=== PATIENT | male | born 1955 | race Two or more races ===

== ENCOUNTER → 2019-04-21 | Outpatient (CLI) | payer OTHER ==
[2019-04-21 13:34] VITALS: BP 144/87; PULSE 88; RESP 18
--- NOTE | 2019-04-21 14:54 | P.PAINCN ---
History of Present Illness - Reason for Consult Consult date: 04/21/19 Scalp pain and head pain - Chief Complaint Scalp pain and head pain - History of Present Illness This a pleasant 53-year-old gentleman who had a lipoma removed off his right posterior scalp. Since that time he has had significant pain and numbness and burning. He presents today to discuss treatment options. He does not have any symptoms down his neck into his back or in his arms. Review of Systems Burning in the back of his head as well as decreased sensation in the back of his head. Pain with neck flexion and extension Past Medical History Additional Past Medical History / Comment(s): pain to back of head with nerve involvement,had dog bite to hand had rabie injections 2018 History of Any Multi-Drug Resistant Organisms: None Reported Additional Past Surgical History / Comment(s): large cyst removed posterior head Past Anesthesia/Blood Transfusion Reactions: No Reported Reaction Past Psychological History: No Psychological Hx Reported Smoking Status: Never smoker Past Alcohol Use History: None Reported Past Drug Use History: None Reported - Past Family History Mother Family Medical History: No Reported History Sister(s) Additional Family Medical History / Comment(s): 1 sister aortic aneurysm,cerebral aneurysm Brother(s) Additional Family Medical History / Comment(s): cerebral aneurysm Medications and Allergies Home Medications Medication Instructions Recorded Confirmed Type Acetaminophen [Tylenol] 1,000 mg PO Q4-6H PRN 04/16/19 04/16/19 History To Bring Med List Day Of Consu 04/16/19 History Gabapentin [Neurontin] 300 mg PO BID 04/21/19 04/21/19 History Loratadine [Claritin] 10 mg PO DAILY 04/21/19 04/21/19 History Allergies Allergy/AdvReac Type Severity Reaction Status Date / Time No Known Allergies Allergy Verified 04/21/19 13:22 Physical Exam Vitals: Vital Signs Pulse Resp BP Pulse Ox 04/21/19 13:24 88 18 144/87 96 General: The patient is alert and oriented. Patient is not sedated Patient answers all question appropriately. Cardiac: Heart is regular in rate and rhythm Respiratory: Clear to auscultation. No audible wheezes. Abdomen: Soft nontender nondistended. Musculoskeletal: Strength is normal bilaterally. Sensation is normal bilaterally. Straight leg raise is negative bilaterally. There is a well- healed scar in his right posterior occipital area. He reports decreased sensation to light touch in this area. He is tender to palpation over this area. Neurological: Reflexes are preserved and symmetric bilaterally. Assessment and Plan Assessment: Occipital neuralgiaright side status post lipoma removal Plan: Plan of Care 1. Medications: Patient currently taking gabapentin twice a day. It had previously been recommended to him to increase this to 3 times a day. This has not happened. I will write him a prescription for gabapentin 300 mg by mouth 3 times a day. I will also give him a perception for compounding cream to help with the sensitivity and pain over his occipital region to be applied on a daily basis. 2. Interventions: None at this time 3. Referrals: None 4. Testing: None 5. Follow-up: One month for reevaluation PQRS Measure Charge Sheet Measure #130: Documentation of Current Meds in Medical Chart: Patient not eligible for medications to be documented Measure #226: Tobacco Use: Screen & Cessation Intervention: Pt not a tobacco user Measure #111: Pneumonia Vaccination: Pneumococcal vaccine administered or previously received Measure #47: Advance Care Plan: Advance care planning discussed & documented, plan or surrogate given Measure #412: Opioid Treatment Agreement: Documented signed opioid trtmnt agreemnt min once during opioid trtmnt Measure #408: Opioid Therapy Follow-up Evaluation: Patient had NO f/u eval minimum every 3 months during opioid therapy Measure #317: Preventitive Care & Scrn High Bld Press & F/U: Normal blood pressure, f/u not required Measure #128: Body Mass Index (BMI) Screening & Follow-up: BMI documented within normal parameters Measure #131: Pain Assessment & Follow-up: Pain positive & plan documented Measure #431: Unhealthy Alcohol Use Preventative Care & Scrn: Patient not identified as an unhealthy alcohol user PQRS Narrative: Smoking Status Never smoker Blood Pressure 144/87 Pain Intensity [Right 6 Posterior Head] Scale Used Numeric (1 - 10) Hx Alcohol Use (MH) No Home Medications: Ambulatory Orders Acetaminophen [Tylenol] 1,000 mg PO Q4-6H PRN 04/16/19 To Bring Med List Day Of Consu 04/16/19 Gabapentin [Neurontin] 300 mg PO BID 04/21/19 Loratadine [Claritin] 10 mg PO DAILY 04/21/19
== END | disposition home or self-care (01) ==
LOC: PNWHC3 13:03
PROVIDERS: ATTEND Pain Medicine Pain Medicine
DX: M54.81 Occipital neuralgia (principal); Z98.890 Other specified postprocedural states
CPT/HCPCS: 99201

== ENCOUNTER → 2019-05-19 | Outpatient (CLI) | payer OTHER ==
[2019-05-19 14:00] VITALS: BP 159/93; PULSE 85; RESP 14
--- NOTE | 2019-05-19 14:23 | P.PN ---
Subjective Progress Note Date: 05/19/19 This is a 63-year-old gentleman with right occipital pain status post cyst removal from the right cervical area. The patient is migraine headache improved after this surgery however he started to feel burning pain on the right side of his head radiating to the frontal area of his head and down to the mid cervical spine area on the right side. He also has decreased range of motion to the right due to this pain. The patient has been on Neurontin 300 mg 3 times a day with no improvement. He also takes ibuprofen as needed. The patient denies any pain or paresthesia in the upper extremities. By physical exam he has mild allodynia to touch around the scar tissue on the right occiput. Positive tenderness in the right occipital area and also in the cervical paravertebral musculature on the right side. Decreased range of motion of motion of the right cervical rotation. Diagnoses: Right occipital neuralgia Cervical spondylosis without myelopathy Plan: Increase Neurontin to 4 pills a day(1200 mg) Schedule for right occipital nerve block with IV sedation May need cervical medial branch block in the future, if There is no improvement in pain Objective - Vital Signs Vital signs: Vital Signs Temp Pulse 85 05/19/19 13:51 Resp 14 05/19/19 13:51 BP 159/93 05/19/19 13:51 Pulse Ox 97 05/19/19 13:51 Intake & Output 05/18/19 05/19/19 05/19/19 18:59 06:59 18:59 Weight 86.636 kg
== END | disposition home or self-care (01) ==
LOC: PNWHC3 12:58
PROVIDERS: ATTEND Anesthesiology
DX: M54.81 Occipital neuralgia (principal); M47.812 Spondylosis without myelopathy or radiculopathy, cervical region; Z79.899 Other long term (current) drug therapy; Z98.890 Other specified postprocedural states
CPT/HCPCS: 99211

== ENCOUNTER 2019-05-26 06:02 | Day surgery (SDC) | payer OTHER ==
[2019-05-21 10:02] VITALS: BMI 30.8
[~2019-05-26 06:02] MED LIST: LACTATED RINGERS 1,000 ML IV SCH
[2019-05-26 06:26] VITALS: RESP 16; TEMP 97
[2019-05-26] MEDS ORDERED: LIDOCAINE 1% 20 ML VIAL (10MG/ML) FOR IV START SQ ONE (06:33)
--- NOTE | 2019-05-26 07:10 | P.PCN ---
Date of Procedure: 05/26/19 Procedure(s) Performed: Pre-operative diagnosis: Right occipital neuralgia Post Operative Diagnosis same Procedure: 8 occipital nerve block ANESTHESIA: none EBL: Minimal PROCEDURE INDICATION: The patient with neck pain and headache secondary to occipital neuralgia unresponsive to conservative treatments. PROCEDURE DESCRIPTION / TECHNIQUE: The patient was seen and identified in the preoperative area. Risks, benefits, complications, and alternatives were discussed with the patient, the patient agreed to proceed with the procedure and signed the consent. IV was started. Vital signs remained stable throughout the procedure. Patient was taken to the OR and time out was completed. The patient was placed in the seated position on the procedure table. The cervical area and right occiptial area were prepped with alcohol swab. Vital signs were closely monitored during the procedure. The right occiptal ridge was palpated and was then accessed with a 25 G needle. Then after negative aspiration, 3 ml of the block solution containing 2 ml of ropivacaine 0.5% and Kenalog 40 mg was injected. Needle was withdrawn intact. Patient tolerated procedure well. No acute complications.
[2019-05-26] MEDS ORDERED: LACTATED RINGERS 1,000 ML IV ONE ×2 (07:11)
[2019-05-26 07:28] VITALS: BP 146/95; PULSE 54
== END 2019-05-26 07:41 | disposition home or self-care (01) ==
LOC: ORPAIN 06:02
PROVIDERS: ATTEND Anesthesiology
DX: M54.81 Occipital neuralgia (principal); M47.812 Spondylosis without myelopathy or radiculopathy, cervical region; Z79.1 Long term (current) use of non-steroidal anti-inflammatories (NSAID); Z79.899 Other long term (current) drug therapy
CPT/HCPCS: 64405; J3301

== ENCOUNTER 2019-06-23 05:59 | Day surgery (SDC) | payer OTHER ==
[2019-06-18 11:56] VITALS: BMI 32.1
[2019-06-23 06:23] VITALS: RESP 16; TEMP 97
[2019-06-23] MEDS ORDERED: LIDOCAINE 1% 20 ML VIAL (10MG/ML) FOR IV START INTRADERMA ONE (06:29)
[2019-06-23] MEDS ORDERED: IV FLUID CONTINUATION 750 ML IV ONE (07:29)
--- NOTE | 2019-06-23 07:30 | P.PCN ---
Date of Procedure: 06/23/19 Procedure(s) Performed: Preoperative diagnoses= 1- Right Greater occipital neuralgia. 2- cervical spondylosis with cervical facet arthropathy Postoperative diagnoses= same as preoperative diagnosis. Procedure= Right Greater occipital nerve block Anesthesia=none Estimated blood loss=minimal. Procedure indication= the patient had a history of severe chronic neck pain ,and headache, diagnosed with occipital neuralgia exam was positive for severe tenderness over the occipital nerve bilaterally, she will be a good candidate occipital nerve block, patient failed conservative management Procedure description= the patient was seen and identified in the preoperative holding area, risks and benefits and alternative of the procedure and possible complications discussed with the patient, and he agreed with the preceding, patient signed the consent, an IV was started, and vital signs were monitored and were stable throughout the procedure, patient was placed in the sitting position or table and the neck area was prepped and draped with a sterile fashion, vital signs were closely monitored during the procedure, 25-gauge needle advanced 1 inch lateral to the occipital protuberance on the right side, at the location of the right occipital nerve , then after negative aspiration for heme and CSF and there was no paresthesia during the injection, 6 ml of Robivacaine 0.5% and 40 mg of Depo-Medrol injected after negative aspiration, the needle removed, Patient tolerated the procedure well without any complication, The patient returned to supine position after the back was cleaned and a Band- Aid applied, the patient transported to recovery room in stable condition and he was monitored for 30 minutes before he was discharged home and then patient was reexamined before going home and patient was discharged in stable condition and patient will follow up with the pain clinic in a few weeks. If patient continued to have severe neck pain and headache, we should order an MRI of the cervical spine, possibly will need to do medial branch block cervical area,
[2019-06-23 07:44] VITALS: BP 158/79; PULSE 61
== END 2019-06-23 08:01 | disposition home or self-care (01) ==
LOC: ORPAIN 05:59
PROVIDERS: ATTEND Specialist
DX: G89.29 Other chronic pain (principal); M54.81 Occipital neuralgia; M47.9 Spondylosis, unspecified
CPT/HCPCS: 64405; J1030

== ENCOUNTER → 2019-07-21 | Outpatient (CLI) | payer OTHER ==
[2019-07-21 13:25] VITALS: BP 140/73; PULSE 73; RESP 16
--- NOTE | 2019-07-23 12:49 | P.PAINPG ---
Subjective Progress Note Date: 07/21/19 - Chief Complaint Scalp pain and head pain - History of Present Illness This a pleasant 53-year-old gentleman who had a lipoma removed off his right posterior scalp. Since that time he has had significant pain and numbness and burning. He was diagnosed with right occipital neuralgia, and underwent occipital nerve block on the right side 2. He returns today for follow-up. He reports about one day of pain relief following each of the blocks. He did not have any long-lasting relief. He reports that the pain is primarily on the right side of his neck radiating to right occiput and occasionally to the top of his head. He has been on gabapentin, which controls the sharp stabbing pain. Review of systems is negative for chest pain, shortness of breath, new onset weakness, numbness/tingling, abdominal pain, malaise, fever, night sweats, chills, homicidal or suicidal ideation, or bowel or bladder incontinence. Physical Exam Physical exam: Vitals: Reviewed in EMR GENERAL: Well appearing, in no acute distress PSYCH: Mood and affect is appropriate. Awake, alert, and oriented SKIN: Skin color, texture, turgor normal, no rashes or lesions HEENT: Normocephalic, atraumatic. EOM intact CV: No pedal edema RESP: Respirations are unlabored, no audible wheezing GI: Abdomen non-distended MUSCULOSKELETAL: Bilateral upper and lower extremity strength is normal and symmetric. No atrophy or tone abnormalities are noted. Neck: Tenderness to palpation over the cervical paraspinous muscles on the right side. Spurling negative, Axial Loading Test negative, Garcia's sign negative. Range of motion of neck is limited due to pain. No obvious deformity or signs of trauma. Normal cervical lordotic curve Extremities: Peripheral joint ROM is full and pain free without obvious instability or laxity in all four extremities. No edema or skin discolorations noted. NEUR: Bilateral upper extremity coordination and muscle stretch reflexes are physiologic and symmetric. No loss of sensation is noted. Assessment and Plan Assessment: Occipital neuralgiaright side status post lipoma removal Cervicalgia, cervical spondylosis Plan: Plan of Care 1. Medications: Continue gabapentin 2. Interventions: None at this time, once MRI is completed, we'll consider cervical facet of genic workup 3. Referrals: None 4. Testing: I have ordered a cervical spine MRI today to assess for degenerative changes. 5. Follow-up: Following MRI PQRS Measure Charge Sheet Measure #130: Documentation of Current Meds in Medical Chart: Patient's medications documented in chart Measure #47: Advance Care Plan: Advance care planning discussed & documented, pt chose/unable to give Measure #412: Opioid Treatment Agreement: No documentation of signed opioid treatment agreement Measure #128: Body Mass Index (BMI) Screening & Follow-up: BMI documented within normal parameters Measure #131: Pain Assessment & Follow-up: Pain positive & plan documented, Follow-up scheduled Measure #431: Unhealthy Alcohol Use Preventative Care & Scrn: Patient not identified as an unhealthy alcohol user PQRS Narrative: Smoking Status Never smoker Hx Alcohol Use (MH) No Home Medications: Ambulatory Orders Gabapentin [Neurontin] 300 mg PO QID 04/21/19 Loratadine [Claritin] 10 mg PO DAILY 04/21/19 Ibuprofen [Motrin] 800 mg PO Q8H PRN 05/19/19 Controlled Substance Measures - Controlled Substance Measures Is patient prescribed a controlled substance at discharge?: No
== END | disposition home or self-care (01) ==
LOC: PNWHC3 12:15
PROVIDERS: ATTEND Anesthesiology
DX: M54.81 Occipital neuralgia (principal); M47.812 Spondylosis without myelopathy or radiculopathy, cervical region; Z79.1 Long term (current) use of non-steroidal anti-inflammatories (NSAID); Z79.899 Other long term (current) drug therapy; Z98.890 Other specified postprocedural states
CPT/HCPCS: 99211

== ENCOUNTER 2019-08-03 09:03 | Emergency (ER) | payer OTHER ==
[2019-08-03] MEDS ORDERED: KETOROLAC 30 MG/ML 1 ML VIAL IM STA (10:22)
--- NOTE | 2019-08-03 10:27 | ED ---
General Adult HPI - General Chief complaint: Neck Pain/Injury Stated complaint: head pain Time Seen by Provider: 08/03/19 09:45 Source: patient, RN notes reviewed Mode of arrival: ambulatory Limitations: no limitations - History of Present Illness Initial comments: 63-year-old male presents to the emergency department for chief complaint of chronic pain. Patient states is chronic back pain that radiates up into the right side of his head because of nerve involvement. States that he is seeing pain management for this. States he has had this area cauterized and receives shots in his neck for this. Patient is here today because he has an MRI scheduled Friday and was hoping that we could expedite this process. Sates this pain has been constant for months. Denies any new symptoms. Denies any weakness in the arms or legs. Denies any loss of sensation in the arms or legs.Patient has no other complaints at this time including shortness of breath, chest pain, abdominal pain, nausea or vomiting, headache, or visual changes. - Related Data Home Medications Medication Instructions Recorded Confirmed Gabapentin [Neurontin] 300 mg PO QID 04/21/19 08/03/19 Acetaminophen Tab [Tylenol] 500 mg PO Q6H PRN 08/03/19 08/03/19 Fluticasone Nasal Martin [Flonase 2 spray EA NOSTRIL DAILY PRN 08/03/19 08/03/19 Nasal Martin] Allergies Allergy/AdvReac Type Severity Reaction Status Date / Time Iodinated Contrast Media Allergy Nausea & Verified 08/03/19 09:29 [Iodinated Contrast- Oral Vomiting and IV Dye] Review of Systems ROS Statement: Those systems with pertinent positive or pertinent negative responses have been documented in the HPI. ROS Other: All systems not noted in ROS Statement are negative. Past Medical History Additional Past Medical History / Comment(s): pain to back of head with nerve involvement,had dog bite to hand had rabieS injections 2018 History of Any Multi-Drug Resistant Organisms: None Reported Additional Past Surgical History / Comment(s): large cyst removed posterior head, PAIN CLINIC PROCEDURES Past Anesthesia/Blood Transfusion Reactions: No Reported Reaction Past Psychological History: No Psychological Hx Reported Smoking Status: Never smoker Past Alcohol Use History: None Reported Past Drug Use History: None Reported - Past Family History Mother Family Medical History: No Reported History Sister(s) Additional Family Medical History / Comment(s): 1 sister aortic aneurysm,cerebral aneurysm Brother(s) Additional Family Medical History / Comment(s): cerebral aneurysm General Exam Limitations: no limitations General appearance: alert, in no apparent distress Head exam: Present: atraumatic, normocephalic, normal inspection Eye exam: Present: normal appearance, PERRL, EOMI. Absent: scleral icterus, co njunctival injection, periorbital swelling ENT exam: Present: normal exam, mucous membranes moist Neck exam: Present: normal inspection. Absent: tenderness, meningismus, full ROM (Pain with full flexion however no rigidity of the neck. Pain with full extension as well.), lymphadenopathy Respiratory exam: Present: normal lung sounds bilaterally. Absent: respiratory distress, wheezes, rales, rhonchi, stridor Cardiovascular Exam: Present: regular rate, normal rhythm, normal heart sounds. Absent: systolic murmur, diastolic murmur, rubs, gallop, clicks GI/Abdominal exam: Present: soft, normal bowel sounds. Absent: distended, tenderness, guarding, rebound, rigid Extremities exam: Present: other (Formulator Compounder strength 5 out of 5 in approximately bilaterally. Sensation intact in upper extremities bilaterally.) Neurological exam: Present: alert Course Vital Signs 08/03/19 09:17 Temperature 97.5 F L Pulse Rate 77 Respiratory 18 Rate Blood Pressure 161/104 O2 Sat by Pulse 98 Oximetry Medical Decision Making - Medical Decision Making HPI physical exam as documented. No neurologic deficits. Pain is been constant for months. Patient presents for us to expedite MRI which she is supposed to receive in 3 days. Discussed the patient that unfortunately I am unable to do this through the ER. I did offer to give him a Toradol shot which he initially did not want. However after discussing this with him he does agree. Patient also stopped taking his gabapentin for the past 3 days he has had a cold. I discussed that he should restart this gabapentin as it will help with his nerve pain. He will call his pain management doctor today. He will return if he has any worsening symptoms. Disposition Clinical Impression: Chronic neck pain Disposition: HOME SELF-CARE Condition: Good Instructions (If sedation given, give patient instructions): Neck Pain (ED) Additional Instructions: Please continue to take her gabapentin. Follow-up with pain management and attend you appointment for an MRI on Friday. Returning if you have any worsening symptoms. Is patient prescribed a controlled substance at d/c from ED?: No Referrals: Bobby Fernando MD [Primary Care Provider] - 1-2 days Time of Disposition: 10:26
[2019-08-03 10:34] VITALS: BP 159/99; PULSE 78; RESP 17; TEMP 98.7
== END 2019-08-03 10:36 | disposition home or self-care (01) ==
LOC: EC 09:03
DX: G89.29 Other chronic pain (principal); M54.2 Cervicalgia; R51 Headache; Z91.041 Radiographic dye allergy status; Z79.899 Other long term (current) drug therapy
CPT/HCPCS: 99283; 96372; J1885

== ENCOUNTER → 2019-08-06 | Outpatient (CLI) | payer OTHER ==
--- NOTE | 2019-08-06 08:05 | MR ---
MRI CERVICAL SPINE: CLINICAL HISTORY: Cervicalgia. TECHNIQUE: Multiplanar, multisequence imaging of the cervical spine is performed without IV contrast. COMPARISON: None. FINDINGS: Examination is suboptimal due to patient breathing causing significant motion artifact. Sag ittal images of the cervical spine show the craniocervical junction to appear within normal limits. The cervical and upper thoracic spinal cord is normal in course, caliber, and signal. There is howev er generalized AP narrowing of the cervical spinal canal Vertebral alignment is anatomic. The verteb ral body heights are normal. There is moderate disc space narrowing C5-C6 level. The bone marrow sign al intensity is within normal limits. Axial images show the C2-C3 level to appear within normal limits. Axial images at C3-C4 level show uncovertebral facet degenerative changes bilaterally causing mild bi lateral neural foraminal narrowing with tiny right paracentral disc protrusion mildly effacing the an terior thecal sac. Axial images at C4-C5 level show more prominent central disc protrusion effaces the anterior thecal s ac with mild left-sided neural foraminal narrowing due to uncovertebral facet arthropathy. Axial images at C5-C6 level from uncovertebral facet degenerative changes with moderate broad-based r ight paracentral disc protrusion. This effaces the anterior thecal sac and there is moderate bilatera l neural foraminal narrowing. Axial images at the C6-C7 levels with broad-based right paracentral/foraminal disc protrusion effacin g ventral thecal sac and causing moderate right-sided neural foraminal narrowing. Left-sided neural f oramen is patent. Axial images at C7-T1 level are within normal limits. IMPRESSION: Suboptimal study with motion artifact degradation, multilevel degenerative changes are pr esent most prominent at the C5-C6 level as detailed above.
== END | disposition home or self-care (01) ==
LOC: RADMRIMAIN 07:11
PROVIDERS: ATTEND Anesthesiology
DX: M48.02 Spinal stenosis, cervical region (principal); M50.21 Other cervical disc displacement, high cervical region; M47.892 Other spondylosis, cervical region; M46.92 Unspecified inflammatory spondylopathy, cervical region
CPT/HCPCS: 72141

== ENCOUNTER → 2019-08-23 | Outpatient (CLI) | payer OTHER ==
[2019-08-23 11:31] VITALS: BP 168/95; PULSE 68; RESP 16
--- NOTE | 2019-08-23 11:46 | P.PAINPG ---
Subjective Progress Note Date: 08/23/19 This is a follow-up visit for this 64 years old male with a chronic history of severe neck pain and headache, his diagnosed with occipital neuralgia, cervical spondylosis with cervical facet arthropathy, previously we have done occipital nerve block, he reported that he had partial benefit and only for 1 day, after the block, he denies any fever or night sweats. Denies any motor or sensory deficit, patient had MRI of the cervical spine done recently and it showed patient had multilevel, cervical foraminotomy stenosis and cervical facet degeneration and cervical degenerative disc disease Objective - Vital Signs Vital signs: Vital Signs Temp Pulse 68 08/23/19 11:28 Resp 16 08/23/19 11:28 BP 168/95 08/23/19 11:28 Pulse Ox 97 08/23/19 11:28 - Exam Physical Examinations : -Constitutiona : Cooperative , not in acute distress . -HEENT : nech : supple , no Lymphadenopathy , normal thyroid size . eyes : no ptosis , no icterus, no photophobia . ENT : normal of hearing , normal oropharynx , no Thrush . - Respiratory : Chest clear to auscultations Bilaterally , no wheezing , no Rhonchi . - Cardiovascula : regular rate and rhythem , S1 , S2 , no S3 , no S4. - Gastrointestina : abdomen soft no tenderness , bowel sounds , no organomegally . - Genitourinary : Defferred . - neurologic : Cranial nerve II to XII intact , no focal neurological deffecit . -psychatric : alert , oriented X 3 , appropriate affect , intact judgment and insight . -Lymphatic : no Lymphadenopathy . - musculoskeltal : Cervical Spine motor stregnth in the deltoid and biceps, normal right side , normal Left side motor stregnth biceps and the wrist extensors normal right side ,normal left side . motor stregnth in the triceps muscle . normal Right side , normal Left side deep tendon reflexes normal at the biceps , normal at Brachioradialis , normal at triceps. cervical facet loading test=Positive Bilaterally Spurling test= negative bilaterally. Neck distraction test= negative bilaterally. Beverley sign= negative bilaterally Lumber spine moter stegnth lower extremities ,thigh and legs 5/5 Right side , 5/5 Left side . Assessment and Plan Plan: Assessment and plan=1-cervical spondylosis with cervical facet arthropathy without myelopathy. 2-occipital neuralgia. 3-cervicogenic headache. He will be good candidate to have diagnostic medial branch block bilaterally C2, C3, C4, C5 x2 and a positive then we will proceed with RFA Procedure risk and benefits and alternatives discussed with the patient he agreed with the procedure. Time with Patient: Less than 30 PQRS Measure Charge Sheet Measure #130: Documentation of Current Meds in Medical Chart: Patient's medications documented in chart Measure #226: Tobacco Use: Screen & Cessation Intervention: Pt not a tobacco user Measure #111: Pneumonia Vaccination: Pneumococcal vaccine NOT administered or previously given Measure #47: Advance Care Plan: Advance care planning discussed & documented, pt chose/unable to give Measure #412: Opioid Treatment Agreement: No documentation of signed opioid treatment agreement Measure #408: Opioid Therapy Follow-up Evaluation: Patient had NO f/u eval minimum every 3 months during opioid therapy Measure #317: Preventitive Care & Scrn High Bld Press & F/U: Pre-hypertensive or hypertensive BP documented, pt will f/u with PCP Measure #128: Body Mass Index (BMI) Screening & Follow-up: BMI documented ABOVE normal parameters - f/u documented Measure #131: Pain Assessment & Follow-up: Pain positive & plan documented, Follow-up scheduled Measure #431: Unhealthy Alcohol Use Preventative Care & Scrn: Patient not identified as an unhealthy alcohol user PQRS Narrative: Smoking Status Never smoker Narcotic Agreement Date Signed 06/25/19 Blood Pressure 168/95 Pain Intensity [Neck] 6 Scale Used Numeric (1 - 10) Hx Alcohol Use (MH) No Home Medications: Ambulatory Orders Gabapentin [Neurontin] 300 mg PO QID 04/21/19 Acetaminophen Tab [Tylenol] 500 mg PO Q6H PRN 08/03/19 Fluticasone Nasal [place] [Flonase Nasal [place]] 2 spray EA NOSTRIL DAILY PRN 08/03/19 Controlled Substance Measures - Controlled Substance Measures Is patient prescribed a controlled substance at discharge?: No
== END ==
LOC: PNWHC3 10:50
PROVIDERS: ATTEND Specialist
DX: M47.812 Spondylosis without myelopathy or radiculopathy, cervical region (principal); M46.92 Unspecified inflammatory spondylopathy, cervical region; M54.81 Occipital neuralgia; R51 Headache; Z79.899 Other long term (current) drug therapy
CPT/HCPCS: 99211

== ENCOUNTER 2019-08-26 07:12 | Day surgery (SDC) | payer OTHER ==
[2019-08-26 08:09] VITALS: TEMP 97.3
[2019-08-26] MEDS ORDERED: IV FLUID CONTINUATION 1,000 ML IV ONE ×2 (08:09→09:50)
[2019-08-26] MEDS ORDERED: LIDOCAINE 1% 20 ML VIAL (10MG/ML) FOR IV START INTRADERMA ONE (08:09)
--- NOTE | 2019-08-26 09:47 | P.PCN ---
Date of Procedure: 08/26/19 Procedure(s) Performed: PREOPERATIVE DIAGNOSIS: Cervical Spondylosis with Facet Arthropathy.without myelopathy POSTOPERATIVE DIAGNOSIS: Cervical Spondylosis Facet Arthropathy. Without myelopathy PROCEDURES: Diagnostic bilateral C2 , C3, C4 , C5 , medial branch blocks, with fluoroscopic guidance (fluoroscopy images available in radiology department ) (The target facet joint C2- 3, C3- 4, C4- 5 ) ANESTHESIA: Local with 1% lidocaine; moderate sedation with Versed. 2 mg , and fentanyl 100 micrograms EBL: Minimal PROCEDURE INDICATION: The patient with neck pain secondary to cervical arthropathy unresponsive to more conservative treatments. PROCEDURE DESCRIPTION / TECHNIQUE: The patient was seen and identified in the preoperative area. Risks, benefits, complications, and alternatives were discussed with the patient, the patient agreed to proceed with the procedure and signed the consent. IV was started. Vital signs remained stable throughout the procedure. Patient was taken to the OR and time out was completed. The patient was placed in the supine position on the procedure table.(when we placed patient in prone position ,I was able to see only C2 vertebral, for this reason patient placed in supine position ). The cervical area was prepped and draped in the usual sterile fashion. Critical pause was taken. Vital signs were closely monitored during the procedure. Conscious sedation was used during the procedure to decrease patients anxiety. Using cross-table lateral fluoroscopy, the centroid of the trapezoid of right C2 ,C3, C4 , C5 was identified, marked, and localized with 1% lidocaine 1 ml at each level for skin and Sub Q infiltrations . Subsequently, a 25 G 4 spinal needle was advanced guided by fluoroscopy to the centroid of the trapezoid of Right C2 ,C3, C4 , C5, . [place] tip position was confirmed at the centroid of the trapezoids of Right C2 ,C3 , C4 , C5 with anteroposterior fluoroscopy. Subsequently, 2 ml of preservative-free Ropivacaine 0.5% mixed with Depo- Medrol 20 mg and half ml of the mixture was injected after negative aspiration for blood and CSF. [place] was then removed intact the same procedure was repeated at the left C2 , C3, C4 , C5 levels. COMPLICATIONS: No acute complications. COMMENTS: DISPOSITION / PLANS: The patient was placed in a supine position and transferred to the recovery area in a stable condition for observation and was discharged from the recovery room after meeting discharge criteria. Home discharge instructions given to the patient by the staff. The patient was reexamined prior to discharge. The patient will schedule a follow up in the clinic in 2-4 weeks.
--- NOTE | 2019-08-26 09:57 | FL ---
EXAMINATION TYPE: FL guided pain mgmt statistic DATE OF EXAM: 08/26/2019 HISTORY: Pain bilateral cervical facet block. Dr. Muhammad. 14 sec fl time. 4 pics scanned
[2019-08-26 10:06] VITALS: BP 149/85; PULSE 60; RESP 16
[2019-08-26] MEDS ORDERED: LACTATED RINGERS 1,000 ML IV SCH (10:45)
== END 2019-08-26 10:46 | disposition home or self-care (01) ==
LOC: ORPAIN 07:12
PROVIDERS: ATTEND Specialist
DX: G89.29 Other chronic pain (principal); M47.812 Spondylosis without myelopathy or radiculopathy, cervical region; M54.81 Occipital neuralgia; Z79.899 Other long term (current) drug therapy
CPT/HCPCS: 64490; 64491; 64492; J2250; J1030; J3010; 99152; 99153

== ENCOUNTER 2019-09-09 07:17 | Day surgery (SDC) | payer OTHER ==
[2019-09-08 08:40] VITALS: BMI 31.0
[2019-09-09 07:59] VITALS: TEMP 98.2
[2019-09-09] MEDS ORDERED: LIDOCAINE 1% 20 ML VIAL (10MG/ML) FOR IV START INTRADERMA ONE (08:05)
[2019-09-09] MEDS ORDERED: IV FLUID CONTINUATION 1,000 ML IV ONE (09:18)
[2019-09-09 09:22] VITALS: RESP 18
[2019-09-09 09:37] VITALS: BP 132/60; PULSE 88
--- NOTE | 2019-09-09 09:42 | P.PCN ---
Date of Procedure: 09/09/19 Procedure(s) Performed: PREOPERATIVE DIAGNOSIS: Cervical Spondylosis with Facet Arthropathy.without myelopathy POSTOPERATIVE DIAGNOSIS: Cervical Spondylosis, Facet Arthropathy. Without myelopathy PROCEDURES: Bilateral Diagnostic C2, C3, C4, C5 medial branch blocks for facets C23, C3-4, C4-5, with fluoroscopic guidance. This is the second diagnostic block ANESTHESIA: Local with 1% lidocaine; IV sedation with Versed, sedation time 23 minutes Fluoroscopy was used for the procedure and images were saved in the radiology portion of the chart. EBL: Minimal PROCEDURE INDICATION: The patient with neck pain secondary to cervical arthropathy unresponsive to more conservative treatments. PROCEDURE DESCRIPTION / TECHNIQUE: The patient was seen and identified in the preoperative area. Risks, benefits, complications, and alternatives were discussed with the patient, the patient agreed to proceed with the procedure and signed the consent. IV was started. Vital signs remained stable throughout the procedure. Patient was taken to the OR and time out was completed. The patient was placed in the supine position on the procedure table. A pillow was placed under the patients chest to increase the cervical interlaminar space. The cervical area was prepped and draped in the usual sterile fashion. A timeout was performed. Vital signs were closely monitored during the procedure. Conscious sedation was used during the procedure to decrease patients anxiety. Using cross-table lateral fluoroscopy, the centroid of the trapezoid of the first level was identified, marked, and localized with 1% lidocaine 0.2 ml at each level for skin and subcutaneous infiltration . Subsequently, a 25 G 3.5" Quinke spinal needle was advanced guided by fluoroscopy to the centroid of the trapezoid . [place] tip position was confirmed using lateral fluoroscopy. 0.5 mL of 4 % lidocaine was injected at each level. COMPLICATIONS: No acute complications. Comments: Contrast dye was not used as the patient is ALLERGIC. DISPOSITION / PLANS: The patient was placed in a supine position and transferred to the recovery area in a stable condition for observation and was discharged from the recovery room after meeting discharge criteria. Home discharge instructions given to the patient by the staff. The patient will follow up in clinic in 2 weeks.
--- NOTE | 2019-09-09 10:23 | FL ---
EXAMINATION TYPE: FL guided pain mgmt statistic DATE OF EXAM: 09/09/2019 FLUOROSCOPY Fluoroscopy time of 9 seconds was used during bilateral cervical facet steroid injections. 7 image/s document/s the procedure.
== END 2019-09-09 09:55 | disposition home or self-care (01) ==
LOC: ORPAIN 07:17
PROVIDERS: ATTEND Anesthesiology
DX: G89.29 Other chronic pain (principal); M47.812 Spondylosis without myelopathy or radiculopathy, cervical region; M54.81 Occipital neuralgia; G44.89 Other headache syndrome; Z79.899 Other long term (current) drug therapy; Z91.041 Radiographic dye allergy status
CPT/HCPCS: 64490; 64491; 64492; J2250; 99152; 99153

== ENCOUNTER → 2019-10-05 | Outpatient (CLI) | payer OTHER ==
[2019-10-05 12:21] VITALS: PULSE 76; RESP 18
[2019-10-05 12:53] VITALS: BP 162/102
--- NOTE | 2019-10-06 14:47 | P.PN ---
Subjective Progress Note Date: 10/05/19 This is a follow-up visit for this 64 years old male with a chronic history of severe neck pain and headache, his diagnosed with occipital neuralgia, cervical spondylosis with cervical facet arthropathy, previously we have done occipital nerve block, he reported that he had partial benefit and only for 1 day, after the block, and recently we have done diagnostic medial branch block cervical area C2, C3, C4, C5, he reported that he had 0 benefit from it, his pain level was 6-7 before the block and he continued to have neck pain around 6-7 after the block, he denies any fever or night sweats. Denies any motor or sensory deficit, patient had MRI of the cervical spine done recently and it showed pat ient had multilevel, cervical foraminotomy stenosis and cervical facet degeneration and cervical degenerative disc disease Physical Examinations : -Constitutiona : Cooperative , not in acute distress . -HEENT : nech : supple , no Lymphadenopathy , normal thyroid size . eyes : no ptosis , no icterus, no photophobia . ENT : normal of hearing , normal oropharynx , no Thrush . - Respiratory : Chest clear to auscultations Bilaterally , no wheezing , no Rhonchi . - Cardiovascula : regular rate and rhythem , S1 , S2 , no S3 , no S4. - Gastrointestina : abdomen soft no tenderness , bowel sounds , no organomegally . - Genitourinary : Defferred . - neurologic : Cranial nerve II to XII intact , no focal neurological deffecit . -psychatric : alert , oriented X 3 , appropriate affect , intact judgment and insight . -Lymphatic : no Lymphadenopathy . - musculoskeltal : Cervical Spine motor stregnth in the deltoid and biceps, normal right side , normal Left side motor stregnth biceps and the wrist extensors normal right side ,normal left side . motor stregnth in the triceps muscle . normal Right side , normal Left side deep tendon reflexes normal at the biceps , normal at Brachioradialis , normal at triceps. cervical facet loading test=Positive Bilaterally Spurling test= negative bilaterally. Neck distraction test= negative bilaterally. Beverley sign= negative bilaterally Lumber spine moter stegnth lower extremities ,thigh and legs 5/5 Right side , 5/5 Left side . Assessment and Plan Plan: Assessment and plan=1-cervical spondylosis with cervical facet arthropathy without myelopathy. 2-occipital neuralgia. 3-cervicogenic headache. Patient had no benefit after occipital nerve block, patient had no benefit after the diagnostic medial branch block cervical area He continued to have severe headache, patient will be referred to a neurologist for evaluation regarding his headaches, Patient saw Dr. Dobson neurologist in [facility] and he will follow up with him MYKEL Patient will continue to use Neurontin 300 mg 3 times a day PQRS Measure Charge Sheet Measure #130: Documentation of Current Meds in Medical Chart: Patient's medications documented in chart Measure #226: Tobacco Use: Screen & Cessation Intervention: Pt not a tobacco user Measure #111: Pneumonia Vaccination: Pneumococcal vaccine NOT administered or previously given Measure #47: Advance Care Plan: Advance care planning discussed & documented, pt chose/unable to give Measure #412: Opioid Treatment Agreement: No documentation of signed opioid treatment agreement Measure #408: Opioid Therapy Follow-up Evaluation: Patient had NO f/u eval minimum every 3 months during opioid therapy Measure #317: Preventitive Care & Scrn High Bld Press & F/U: Pre-hypertensive or hypertensive BP documented, pt will f/u with PCP Measure #128: Body Mass Index (BMI) Screening & Follow-up: BMI documented ABOVE normal parameters - f/u documented Measure #131: Pain Assessment & Follow-up: Pain positive & plan documented, Follow-up scheduled Measure #431: Unhealthy Alcohol Use Preventative Care & Scrn: Patient not identified as an unhealthy alcohol user PQRS Narrative: Objective - Vital Signs Vital signs: Vital Signs Temp Pulse 76 10/05/19 12:09 Resp 18 10/05/19 12:09 BP 162/102 10/05/19 12:52 Pulse Ox 95 10/05/19 12:09
== END ==
LOC: PNWHC3 11:06
PROVIDERS: ATTEND Specialist
DX: M47.812 Spondylosis without myelopathy or radiculopathy, cervical region (principal); M46.92 Unspecified inflammatory spondylopathy, cervical region; M54.81 Occipital neuralgia; R51 Headache
CPT/HCPCS: 99211

== ENCOUNTER 2019-11-13 22:54 | Emergency (ER) | payer OTHER ==
[2019-11-13 23:15] VITALS: TEMP 98
[2019-11-13] MEDS ORDERED: guaiFENesin-DM 600/30MG 1 EACH TAB.ER.12H PO STA (23:26)
[2019-11-13] MEDS ORDERED: HYDROmorphone 1 MG/ML 1 ML SYRINGE IM STA (23:26)
[2019-11-13] MEDS ORDERED: ORPHENADRINE 30 MG/ML 2 ML VIAL IM STA (23:26)
[2019-11-13] MEDS ORDERED: IPRATROPIUM-ALBUTEROL 3 ML NEB INHALATION STA (23:26)
--- NOTE | 2019-11-14 01:05 | ED ---
General Adult HPI - General Chief complaint: Neck Pain/Injury Stated complaint: Migraine Time Seen by Provider: 11/13/19 23:16 Source: patient, family Mode of arrival: ambulatory Limitations: no limitations - History of Present Illness Initial comments: 64-year-old male patient presents to the emergency department today for evaluation of neck pain radiating into his head. Patient states that he has had these symptoms for a little over a year after experiencing a fall. Patient states he is being treated by paint technician Dr. Dobson. States he is unable to get his last injections due to being ill with pneumonia. States his cough has worsened his symptoms. States that he did take a Fioricet which did not help his symptoms. Denies using any other medications. He is currently on antibiotics for pneumonia. Denies using any cough medications. Denies fever or chills. Denies any new symptoms. Denies any numbness or tingling to the upper extremities. Denies blurred vision, double vision, nausea, or vomiting. Patient denies any recent rash, shortness breath, chest pain, abdominal pain, diarrhea, constipation, dizziness, weakness, hematuria, dysuria, urinary urgency, urinary frequency, or any other complaints. - Related Data Home Medications Medication Instructions Recorded Confirmed Gabapentin [Neurontin] 300 mg PO QID 04/21/19 10/05/19 Acetaminophen Tab [Tylenol] 500 mg PO Q6H PRN 08/03/19 10/05/19 Fluticasone Nasal [place] [Flonase 2 spray EA NOSTRIL DAILY PRN 08/03/19 10/05/19 Nasal [place]] Previous Rx's Medication Instructions Recorded Albuterol Sulfate [Proair Hfa] 1 - 2 puff INHALATION Q6HR PRN #1 11/14/19 inhaler Ipratropium-Albuterol Nebulize 3 ml INHALATION Q4H PRN #30 neb 11/14/19 [Duoneb 0.5 mg-3 mg/3 ml Soln] predniSONE 50 mg PO DAILY #3 tab 11/14/19 Allergies Allergy/AdvReac Type Severity Reaction Status Date / Time Iodinated Contrast Media Allergy Nausea & Verified 11/13/19 23:15 [Iodinated Contrast- Oral Vomiting and IV Dye] Review of Systems ROS Statement: Those systems with pertinent positive or pertinent negative responses have been documented in the HPI. ROS Other: All systems not noted in ROS Statement are negative. Past Medical History Past Medical History: GERD/Reflux, Osteoarthritis (OA), Pneumonia Additional Past Medical History / Comment(s): Chronic pain to back of head with nerve involvement, had dog bite to hand, had rabies injections 2018. Hx Pneumonia 2017. migraines History of Any Multi-Drug Resistant Organisms: None Reported Additional Past Surgical History / Comment(s): Large cyst removed from posterior head, PAIN CLINIC PROCEDURES. Past Anesthesia/Blood Transfusion Reactions: No Reported Reaction Past Psychological History: No Psychological Hx Reported Smoking Status: Never smoker Past Alcohol Use History: None Reported Past Drug Use History: None Reported - Past Family History Mother Family Medical History: No Reported History, Deep Vein Thrombosis (DVT) Sister(s) Additional Family Medical History / Comment(s): 1 sister aortic aneurysm, cerebral aneurysm Brother(s) Additional Family Medical History / Comment(s): cerebral aneurysm General Exam Limitations: no limitations General appearance: alert, in no apparent distress, other (This is a well- developed, well-nourished adult male patient in no acute distress. Vital signs upon presentation temperature 98.2F, pulse 96, respirations 20, blood pressure 154/96, pulse ox 94% on room air.) Eye exam: Present: normal appearance, PERRL, EOMI. Absent: scleral icterus, conjunctival injection, periorbital swelling ENT exam: Present: normal exam, normal oropharynx, mucous membranes moist Neck exam: Present: normal inspection, full ROM. Absent: tenderness, meningismus, lymphadenopathy Respiratory exam: Present: wheezes (Faint expiratory wheezes noted in the posterior lung brewer.), other (Persistent dry cough noted). Absent: normal lung sounds bilaterally, respiratory distress, rales, rhonchi, stridor Cardiovascular Exam: Present: regular rate, normal rhythm, normal heart sounds. Absent: systolic murmur, diastolic murmur, rubs, gallop, clicks GI/Abdominal exam: Present: soft, normal bowel sounds. Absent: distended, t enderness, guarding, rebound, rigid Back exam: Present: normal inspection. Absent: vertebral tenderness Neurological exam: Present: alert, oriented X3, CN II-XII intact, other (Strength in all 4 extremities is 5/5.) Psychiatric exam: Present: normal affect, normal mood Skin exam: Present: warm, dry, intact, normal color. Absent: rash Course Vital Signs 11/13/19 11/14/19 11/14/19 23:12 00:06 00:10 Temperature 98.0 F Pulse Rate 96 96 96 Respiratory 20 Rate Blood Pressure 154/96 O2 Sat by Pulse 94 L Oximetry 11/14/19 01:16 Temperature Pulse Rate 95 Respiratory 18 Rate Blood Pressure 133/88 O2 Sat by Pulse 95 Oximetry Medical Decision Making - Medical Decision Making 64-year-old male patient presents to the emergency department today for evaluation of neck pain. Pain is chronic in nature. States that he has had a for the last year. He is also experiencing cough and congestion. He is being treated for pneumonia currently. Reports intermittent wheezing. Physical examination reveals normal neurologic status. Lungs do exhibiting x-ray wheezing. Given a breathing treatment and cough medication here in the emergency department. Upon reevaluation he does report improvement of symptoms. All symptoms seemed to be chronic, he denies new symptoms. He will be discharged with prescription for DuoNeb treatments, albuterol inhaler, and prednisone. He is instructed to follow up with his primary care physician and his paint technician for further evaluation as soon as possible. Return parameters were discussed in detail. He verbalizes understanding and agrees with this plan. Disposition Clinical Impression: Chronic neck pain, Acute bronchitis, Pneumonia Disposition: HOME SELF-CARE Condition: Good Instructions (If sedation given, give patient instructions): Acute Bronchitis (ED), Pneumonia (ED), Chronic Neck Pain (DC) Additional Instructions: Take medications as directed. Follow-up with your neurologist for further evaluation as soon as possible. Return to the emergency department immediately for any new, worsening, or concerning symptoms. Prescriptions: Ipratropium-Albuterol Nebulize [Duoneb 0.5 mg-3 mg/3 ml Soln] 3 ml INHALATION Q4H PRN #30 neb PRN Reason: Wheezing/Shortness of breath predniSONE 50 mg PO DAILY #3 tab Albuterol Sulfate [Proair Hfa] 1 - 2 puff INHALATION Q6HR PRN #1 inhaler PRN Reason: Shortness Of Breath Is patient prescribed a controlled substance at d/c from ED?: No Referrals: Bobby Fernando MD [Primary Care Provider] - 1-2 days Time of Disposition: 01:05
[2019-11-14 01:21] VITALS: BP 133/88; PULSE 95; RESP 18
== END 2019-11-14 01:20 | disposition home or self-care (01) ==
LOC: EC 22:54
DX: M54.2 Cervicalgia (principal); G89.29 Other chronic pain; J20.9 Acute bronchitis, unspecified; J18.9 Pneumonia, unspecified organism; Z91.041 Radiographic dye allergy status; Z79.899 Other long term (current) drug therapy
CPT/HCPCS: 94640; 99283; 96372 ×2; J2360; J1170

== ENCOUNTER 2021-06-29 08:08 | Day surgery (SDC) | payer OTHER ==
[2021-06-28 10:02] VITALS: BMI 32.8
[2021-06-29] MEDS: LACTATED RINGERS 1,000 ML IV SCH ×2 (08:23→08:38)
[2021-06-29] MEDS ORDERED: PROPOFOL 10 MG/ML 20 ML VIAL IV ONE (09:05)
[2021-06-29] MEDS ORDERED: fentaNYL (PF) 50 MCG/ML 2 ML AMP ONE (09:05)
[2021-06-29] MEDS ORDERED: MIDAZOLAM 2 MG/2 ML VIAL ONE (09:05)
--- NOTE | 2021-06-29 09:33 | P.PCN ---
Date of Procedure: 06/29/21 Procedure(s) Performed: BRIEF HISTORY: Patient is a 65-year-old pleasant male scheduled for an elective colonoscopy as a part of evaluation of change in bowel habits for the last 3 months duration. PROCEDURE PERFORMED: Colonoscopy with biopsy. PREOPERATIVE DIAGNOSIS: Change in bowel habits. IV sedation per Anesthesia. PROCEDURE: After informed consent was obtained, the patient, was brought into the endoscopy unit. IV sedation was administered by Anesthesia under continuous monitoring. Digital rectal examination was normal. Initially the Olympus CF-160 flexible video colonoscope was then inserted in the rectum, gradually advanced into the cecum without any difficulty. Careful examination was performed as the scope was gradually being withdrawn. Ileocecal valve and the appendiceal orifice were visualized and appeared normal. Prep was excellent. In the base of the cecum there was a 3 mm polyp that was removed by cold biopsy. Mucosa of the cecum, ascending colon, transverse colon, descending colon, sigmoid colon, and rectum appeared normal. Retroflexion was performed in the rectum and no lesions were seen. The patient tolerated the procedure well. IMPRESSION: 3-4 mm cecal polyp status post biopsy Rest of the colon appeared normal RECOMMENDATIONS: Findings of this examination were discussed with the patient as well as his family. He was advised to follow with the biopsy results. If the biopsy reveals an adenoma, he can have a repeat colonoscopy in 5 years.
[2021-06-29 09:58] VITALS: PULSE 55
[2021-06-29 10:19] VITALS: BP 157/69
== END 2021-06-29 10:34 | disposition home or self-care (01) ==
LOC: ORWHC2ENDO 08:08
PROVIDERS: ATTEND Internal Medicine Gastroenterology
DX: D12.0 Benign neoplasm of cecum (principal); Z98.890 Other specified postprocedural states; M54.5 Low back pain; G89.29 Other chronic pain; K21.9 Gastro-esophageal reflux disease without esophagitis; Z79.899 Other long term (current) drug therapy
CPT/HCPCS: 45380; 88305; J2250; J3010; J2704

== ENCOUNTER 2021-11-30 05:55 | Day surgery (SDC) | payer OTHER ==
[2021-11-27 16:22] VITALS: BMI 34.7
[~2021-11-30 05:55] MED LIST changes: +ALPRAZolam 0.25 MG TAB PO PRN; +ALPRAZolam 0.5 MG TAB PO PRN; +HEPARIN SODIUM,PORCINE 10,000 UNIT in SODIUM CHLORIDE 0.9% 1,000 ML IRRIGATION PRN; +HEPARIN SODIUM,PORCINE 2,500 UNIT in SODIUM CHLORIDE 0.9% 250 ML IRRIGATION PRN; -LACTATED RINGERS 1,000 ML IV SCH; +NITROGLYCERIN SL TABS 0.4 MG TAB SUBLINGUAL PRN; +SODIUM CHLORIDE 0.9% 1,000 ML in EMPTY BAG 1 BAG IV SCH
[2021-11-30 06:33] VITALS: TEMP 97.8
[2021-11-30 06:36] LABS: Basophils % (A) 0 %; Eosinophils # (A) 0.1 k/uL (0-0.7); Eosinophils % (A) 1 %; HGB 15.4 gm/dL (13.0-17.5); Lymphocytes % (A) 17 %; MCH 29.8 pg (25.0-35.0); MCHC 33.4 g/dL (31.0-37.0); MCV 89.3 fL (80.0-100.0); Mean Platelet Volume 7.4; Monocytes # (A) 0.4 k/uL (0-1.0); Monocytes % (A) 3 %; Neutrophils # (A) 8.9 k/uL (1.3-7.7); Neutrophils % (A) 78 %; Platelet Count 262 k/uL (150-450); RBC 5.16 m/uL (4.30-5.90); RDW 13.2 % (11.5-15.5); WBC 11.4 k/uL (3.8-10.6)
[2021-11-30 06:57] LABS: African American GFR (CKD) >90 (>60 ml/min/1.73 sqM); Anion Gap 9 mmol/L; Blood Urea Nitrogen 25 mg/dL (9-20); Calcium 9.6 mg/dL (8.4-10.2); Carbon Dioxide 20 mmol/L (22-30); Chloride 112 mmol/L (98-107); Glucose 130 mg/dL (74-99); Non-African American GFR(CKD) 82 (>60 ml/min/1.73 sqM); Potassium 4.4 mmol/L (3.5-5.1); Sodium 141 mmol/L (137-145)
[2021-11-30] MEDS ORDERED: ASPIRIN 325 MG TAB PO ONE (07:00)
[2021-11-30] MEDS ORDERED: LIDOCAINE 1% INJ 10MG/ML (20 ML MDV) ONE (07:36)
[2021-11-30] MEDS ORDERED: VERAPAMIL 2.5 MG/ML 2 ML AMP ONE (07:37)
[2021-11-30] MEDS ORDERED: fentaNYL (PF) 50 MCG/ML 2 ML AMP ONE (07:41)
[2021-11-30] MEDS ORDERED: HEPARIN SODIUM 1,000 UN/ML (10ML VL) ONE (07:41)
[2021-11-30] MEDS ORDERED: LIDOCAINE 1% INJ 10MG/ML (10 ML MDV) SQ ONE ×2 (07:41→07:43)
[2021-11-30] MEDS ORDERED: MIDAZOLAM 2 MG/2 ML VIAL IVP ONE (07:42)
[2021-11-30] MEDS ORDERED: fentaNYL (PF) 50 MCG/ML 2 ML AMP IVP ONE ×2 (07:42)
[2021-11-30] MEDS ORDERED: VERAPAMIL SYRINGE (5 MG/10 ML) INTRAARTER ONE (07:46)
[2021-11-30] MEDS ORDERED: HEPARIN SODIUM 1,000 UN/ML (10ML VL) IV ONE (07:49)
[2021-11-30] MEDS ORDERED: IOPAMIDOL-370 125ML BTL INJ ONE (08:01)
[2021-11-30] MEDS ORDERED: RX INFO: IV CONTRAST WAS GIVEN 1 EACH MISC MISCELLANE PRN (09:27)
[2021-11-30] MEDS ORDERED: SODIUM CHLORIDE 0.9% 1,000 ML IV SCH (09:30)
--- NOTE | 2021-11-30 10:23 | CC ---
CARDIAC CATHETERIZATION REPORT DATE OF SERVICE: 11/30/2021 INDICATION: Shortness of breath with new-onset cardiomyopathy showing evidence of prior apical myocardial infarction. PROCEDURE NOTE: After obtaining informed consent, left heart catheterization and coronary angiogram were performed via the right radial artery using size 3-1/2 right and left [place] catheter and size 3 left [place] catheter. A pigtail catheter was used to obtain left ventricular hemodynamics. Patient tolerated the procedure well without any obvious immediate complications. Patient received moderate conscious sedation. Total sedation time was 21 minutes. TR band was used for hemostasis as per protocol. Right radial artery access was obtained using a micropuncture needle, and under fluoroscopic guidance catheters and wires were floated into the ascending aorta uneventfully. Patient received 5 mg of verapamil and 5000 units of intravenous heparin as per protocol. FINDINGS: HEMODYNAMICS: Left ventricular end-diastolic pressure is 30 mm. There is no significant gradient across the aortic valve. LEFT VENTRICULOGRAM: Left ventriculogram was not performed. ANGIOGRAPHIC DATA: Left main coronary artery. Left main coronary artery is a normal-sized vessel and is free of stenosis. It divides into left anterior descending coronary artery and circumflex coronary artery. LAD appears totally occluded in its proximal portion with extensive [id number] collaterals. Circumflex coronary artery shows mild nonobstructive disease. Right coronary artery is a large dominant vessel that shows mild atherosclerotic plaque in the proximal and mid portions with extensive collaterals from the right to the distal LAD. CONCLUSIONS: 1. Chronic total occlusion of the proximal LAD with extensive collaterals from the right to the distal LAD. 2. Evidence of prior apical myocardial infarction. PLAN: I am going to obtain viability studies in the LAD distribution, and if he has viability consider referring him for angioplasty of the chronically occluded LAD. MMODL / IJN: [id number] /
--- NOTE | 2021-11-30 10:23 | LTR ---
November 30, 2021 To: Dr. Aston Mendoza Re: Mitchell Campos (59) Dear Dr. Mendoza, I performed cardiac catheterization on Mitchell Campos. In detail catheterization note is enclosed for your records. In brief, the heart catheterization shows a chronically occluded LAD. I will obtain viability study and if necessary refer him for angioplasty, but in the meantime management is going to be in the form of aggressive medical therapy. Thank you for giving me the privilege of participating in the care of this pleasant gentleman. Sincerely, Brando Duke M.D. EMMA / SWETA: [id number] /
[2021-11-30 18:11] VITALS: BP 124/66; PULSE 60; RESP 16
== END 2021-11-30 12:17 | disposition home or self-care (01) ==
LOC: CATHCVL 05:55
PROVIDERS: ATTEND Internal Medicine Cardiovascular Disease
DX: I42.9 Cardiomyopathy, unspecified (principal); I25.2 Old myocardial infarction; Z20.822 Contact with and (suspected) exposure to COVID-19
CPT/HCPCS: 93458; 80048; 85025; 87635; C1894; J2250; J3010; J1644; J2001; Q9967

== ENCOUNTER 2021-12-04 17:39 | Observation (INO) | payer OTHER ==
[2021-12-04] MEDS ORDERED: MORPHINE SULFATE 2 MG/ML SYRINGE IVP STA (18:32)
[2021-12-04] MEDS ORDERED: ASPIRIN 325 MG TAB PO STA (18:32)
[2021-12-04 18:41] LABS: Basophils # (A) 0.1 k/uL (0-0.2); Basophils % (A) 1 %; Eosinophils # (A) 0.1 k/uL (0-0.7); Eosinophils % (A) 1 %; HCT 46.8 % (39.0-53.0); HGB 15.6 gm/dL (13.0-17.5); Lymphocytes # (A) 1.8 k/uL (1.0-4.8); Lymphocytes % (A) 27 %; MCH 29.3 pg (25.0-35.0); MCHC 33.4 g/dL (31.0-37.0); MCV 87.9 fL (80.0-100.0); Mean Platelet Volume 7.4; Monocytes # (A) 0.7 k/uL (0-1.0); Monocytes % (A) 10 %; Neutrophils # (A) 3.9 k/uL (1.3-7.7); Neutrophils % (A) 58 %; Platelet Count 224 k/uL (150-450); RBC 5.33 m/uL (4.30-5.90); RDW 13.1 % (11.5-15.5); WBC 6.6 k/uL (3.8-10.6)
[2021-12-04 18:44] LABS: Albumin 4.1 g/dL (3.5-5.0); Calcium 9.4 mg/dL (8.4-10.2); INR 1.1 (<1.2); Magnesium 2.3 mg/dL (1.6-2.3); Partial Thromboplastin Time 25.6 sec (22.0-30.0); Potassium 4.3 mmol/L (3.5-5.1); Prothrombin Time 11.4 sec (9.0-12.0); Total Bilirubin 1.6 mg/dL (0.2-1.3); Total Protein 6.7 g/dL (6.3-8.2)
--- NOTE | 2021-12-04 18:47 | XR ---
EXAMINATION TYPE: XR chest 2V DATE OF EXAM: 12/04/2021 6:35 PM COMPARISON:None TECHNIQUE: Frontal view of the chest. CLINICAL INDICATION:Male, 66 years old with history of Chest Pain; FINDINGS: Lungs/Pleura: There is no evidence of pleural effusion, focal consolidation, or pneumothorax. Pulmonary vascularity: Unremarkable. Heart/mediastinum: Cardiomediastinal silhouette is unremarkable. Musculoskeletal: No acute osseous pathology. IMPRESSION: No acute cardiopulmonary disease/process.
[2021-12-04] MEDS ORDERED: NITROGLYCERIN SL TABS 0.4 MG TAB SUBLINGUAL PRN (19:04)
[2021-12-04] MEDS ORDERED: HEPARIN SODIUM 1,000 UN/ML (10ML VL) IV ONE (19:04)
[2021-12-04] MEDS ORDERED: MORPHINE SULFATE 2 MG/ML SYRINGE IVP PRN (19:04)
--- NOTE | 2021-12-04 19:09 | ED ---
General Adult HPI - General Chief complaint: Chest Pain Stated complaint: chest pain Time Seen by Provider: 12/04/21 18:15 Source: patient, RN notes reviewed, old records reviewed Mode of arrival: ambulatory Limitations: no limitations - History of Present Illness Initial comments: 66-year-old male presented for evaluation of chest pain. He has had chest pain for many months. He had a recent heart catheterization which showed a totally occluded LAD. He was scheduled for a repeat heart catheterization in the upcoming week. He states that his chest pain which has been present for the past several months has worsened. He denies vomiting or diaphoresis. He denies abdominal pain. - Related Data Home Medications Medication Instructions Recorded Confirmed Acetaminophen Tab [Tylenol] 500 mg PO Q6H PRN 08/03/19 11/27/21 Fluticasone Nasal [place] [Flonase 2 spray EA NOSTRIL DAILY PRN 08/03/19 11/30/21 Nasal [place]] Atorvastatin [Lipitor] 40 mg PO HS 06/28/21 11/30/21 Tamsulosin [Flomax] 0.4 mg PO HS 06/28/21 11/30/21 Aspirin EC [Ecotrin Low Dose] 81 mg PO DAILY 11/27/21 11/30/21 Metoprolol Succinate (ER) [Toprol 25 mg PO 11/27/21 11/30/21 Xl] Pregabalin [Lyrica] 200 mg PO 199911/27/21 11/30/21 lisinopriL [Zestril] 5 mg PO DAILY 11/27/21 11/30/21 Previous Rx's Medication Instructions Recorded Albuterol Sulfate [Proair Hfa] 1 - 2 puff INHALATION Q6HR PRN #1 11/14/19 inhaler Furosemide [Lasix] 40 mg PO DAILY 30 Days #30 tablet 11/30/21 Allergies Allergy/AdvReac Type Severity Reaction Status Date / Time Iodinated Contrast Media Allergy Nausea & Verified 12/04/21 17:54 [Iodinated Contrast- Oral Vomiting and IV Dye] Review of Systems ROS Statement: Those systems with pertinent positive or pertinent negative responses have been documented in the HPI. ROS Other: All systems not noted in ROS Statement are negative. 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 Hx Pneumonia 2017. Hx migraines, Had a cyst on the back of his head from injury with some nerve damage. Has stomach pain. CONSTIPATION, MIGRAINE HEADACHE History of Any Multi-Drug Resistant Organisms: None Reported Additional Past Surgical History / Comment(s): Large cyst removed from posterior head, PAIN CLINIC PROCEDURES. Past Anesthesia/Blood Transfusion Reactions: No Reported Reaction Past Psychological History: No Psychological Hx Reported Smoking Status: Never smoker Past Alcohol Use History: None Reported Past Drug Use History: None Reported - Past Family History Mother Family Medical History: Deep Vein Thrombosis (DVT) Sister(s) Additional Family Medical History / Comment(s): 1 sister aortic aneurysm, cerebral aneurysm Brother(s) Family Medical History: Cancer Additional Family Medical History / Comment(s): cerebral aneurysm General Exam Limitations: no limitations General appearance: alert, in no apparent distress Head exam: Present: atraumatic, normocephalic Eye exam: Present: normal appearance, PERRL ENT exam: Present: normal exam Neck exam: Present: normal inspection. Absent: tenderness, meningismus Respiratory exam: Present: normal lung sounds bilaterally. Absent: respiratory distress, wheezes Cardiovascular Exam: Present: regular rate, normal rhythm GI/Abdominal exam: Present: soft. Absent: distended, tenderness, guarding Extremities exam: Present: normal inspection, normal capillary refill. Absent: pedal edema, calf tenderness Neurological exam: Present: alert, oriented X3, CN II-XII intact. Absent: motor sensory deficit Psychiatric exam: Present: normal affect, normal mood Skin exam: Present: warm, dry, intact. Absent: cyanosis, diaphoretic Course Vital Signs 12/04/21 17:50 Temperature 98.0 F Pulse Rate 88 Respiratory 16 Rate Blood Pressure 90/62 O2 Sat by Pulse 98 Oximetry EKG Findings - EKG Comments: EKG Findings:: EKG: Sinus rhythm no ST segment elevation, T-wave inversion in V2, rate 73, UT interval 153, QRS duration 97, QTC 380 Medical Decision Making - Medical Decision Making 66-year-old male with known CAD presenting with chest pain. I did discuss case with Dr. Duke who is covering for cardiology and very familiar with this patient. He recommends that the patient be admitted on IV heparin for unstable angina. Chest x-ray, he is unremarkable. He has normal CBC, normal CMP, negative ini tial troponin. Serial cardiac enzymes will be obtained. The patient is given aspirin and heparin in the emergency department. Case discussed with Dr. Clark who will admit. - Lab Data Result diagrams: 12/04/21 18:23 12/04/21 18:23 Lab Results 12/04/21 12/04/21 12/04/21 Range/Units 18:23 18:23 18:23 WBC 6.6 (3.8-10.6) k/uL RBC 5.33 (4.30-5.90) m/uL Hgb 15.6 (13.0-17.5) gm/dL Hct 46.8 (39.0-53.0) % MCV 87.9 (80.0-100.0) fL MCH 29.3 (25.0-35.0) pg MCHC 33.4 (31.0-37.0) g/dL RDW 13.1 (11.5-15.5) % Plt Count 224 (150-450) k/uL MPV 7.4 Neutrophils % 58 % Lymphocytes % 27 % Monocytes % 10 % Eosinophils % 1 % Basophils % 1 % Neutrophils # 3.9 (1.3-7.7) k/uL Lymphocytes # 1.8 (1.0-4.8) k/uL Monocytes # 0.7 (0-1.0) k/uL Eosinophils # 0.1 (0-0.7) k/uL Basophils # 0.1 (0-0.2) k/uL PT 11.4 (9.0-12.0) sec INR 1.1 (<1.2) APTT 25.6 (22.0-30.0) sec Sodium 136 L (137-145) mmol/L Potassium 4.3 (3.5-5.1) mmol/L Chloride 104 (98-107) mmol/L Carbon Dioxide 21 L (22-30) mmol/L Anion Gap 11 mmol/L BUN 27 H (9-20) mg/dL Creatinine 1.22 (0.66-1.25) mg/dL Est GFR (CKD-EPI)AfAm 72 (>60 ml/min/1.73 sqM) Est GFR (CKD-EPI)NonAf 63 (>60 ml/min/1.73 sqM) Glucose 106 H (74-99) mg/dL Calcium 9.4 (8.4-10.2) mg/dL Magnesium 2.3 (1.6-2.3) mg/dL Total Bilirubin 1.6 H (0.2-1.3) mg/dL AST 21 (17-59) U/L ALT 16 (4-49) U/L Alkaline Phosphatase 61 (38-126) U/L Troponin I (0.000-0.034) ng/mL Total Protein 6.7 (6.3-8.2) g/dL Albumin 4.1 (3.5-5.0) g/dL 12/04/21 Range/Units 18:23 WBC (3.8-10.6) k/uL RBC (4.30-5.90) m/uL Hgb (13.0-17.5) gm/dL Hct (39.0-53.0) % MCV (80.0-100.0) fL MCH (25.0-35.0) pg MCHC (31.0-37.0) g/dL RDW (11.5-15.5) % Plt Count (150-450) k/uL MPV Neutrophils % % Lymphocytes % % Monocytes % % Eosinophils % % Basophils % % Neutrophils # (1.3-7.7) k/uL Lymphocytes # (1.0-4.8) k/uL Monocytes # (0-1.0) k/uL Eosinophils # (0-0.7) k/uL Basophils # (0-0.2) k/uL PT (9.0-12.0) sec INR (<1.2) APTT (22.0-30.0) sec Sodium (137-145) mmol/L Potassium (3.5-5.1) mmol/L Chloride (98-107) mmol/L Carbon Dioxide (22-30) mmol/L Anion Gap mmol/L BUN (9-20) mg/dL Creatinine (0.66-1.25) mg/dL Est GFR (CKD-EPI)AfAm (>60 ml/min/1.73 sqM) Est GFR (CKD-EPI)NonAf (>60 ml/min/1.73 sqM) Glucose (74-99) mg/dL Calcium (8.4-10.2) mg/dL Magnesium (1.6-2.3) mg/dL Total Bilirubin (0.2-1.3) mg/dL AST (17-59) U/L ALT (4-49) U/L Alkaline Phosphatase (38-126) U/L Troponin I <0.012 (0.000-0.034) ng/mL Total Protein (6.3-8.2) g/dL Albumin (3.5-5.0) g/dL Critical Care Time Critical Care Time: Yes Total Critical Care Time: 35 Disposition Clinical Impression: Unstable angina pectoris Disposition: ADMITTED IP TO THIS [facility] Condition: Stable Is patient prescribed a controlled substance at d/c from ED?: No Referrals: Aston Mendoza MD [Primary Care Provider] - 1-2 days Decision to Admit Reason: Admit from EC Decision Date: 12/04/21 Decision Time: 19:09
[2021-12-04] MEDS ORDERED: HEPARIN SOD,PORK IN 0.45% NACL 25,000 UNIT in 0.45% NACL 1 250ML.BAG IV SCH (19:15)
[2021-12-04] MEDS ORDERED: ZOLPIDEM 5 MG TAB PO PRN (22:29)
--- NOTE | 2021-12-04 22:52 | P.HPIM ---
History of Present Illness H&P Date: 12/04/21 Chief Complaint: refractory chest pain 66 year old male with CAD patient comes in due to refractory chest pain with slightest exertion which has been going on for several months , he had left heart cath which showed total occlusion of the LAD,and cardiology was planning on staged left heart cath later this month , however, due to recurrent episodes of severe pain , patient could not wait any longer. he describes pain as episodes of severe sharp pain with constant background of dull achy pain and heaviness with exertion , and pain worsening with deep breathing, denies any coughing , fever, chills, abd pain , nausea or vomting. patient unvaccinated against covid , and while in the ED today, he tested positive for covid , he is otherwise asymptomatic and oxygen sat within normal limits on room air blood work unremarkable , EKG NSR with no acute ST changes patient denies smoking, alcohol , or recreational drugs Review of Systems Pertinent positives as noted in HPI. 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 Hx Pneumonia 2016. Hx migraines, Had a cyst on the back of his head from injury with some nerve damage. Has stomach pain. CONSTIPATION, MIGRAINE HEADACHE History of Any Multi-Drug Resistant Organisms: None Reported Additional Past Surgical History / Comment(s): Large cyst removed from posterior head, PAIN CLINIC PROCEDURES. Past Anesthesia/Blood Transfusion Reactions: No Reported Reaction Past Psychological History: No Psychological Hx Reported Smoking Status: Never smoker Past Alcohol Use History: None Reported Past Drug Use History: None Reported - Past Family History Mother Family Medical History: Deep Vein Thrombosis (DVT) Sister(s) Additional Family Medical History / Comment(s): 1 sister aortic aneurysm, cerebral aneurysm Brother(s) Family Medical History: Cancer Additional Family Medical History / Comment(s): cerebral aneurysm Medications and Allergies Home Medications Medication Instructions Recorded Confirmed Type Atorvastatin [Lipitor] 40 mg PO HS 06/28/21 12/04/21 History Aspirin EC [Ecotrin Low Dose] 81 mg PO BID 11/27/21 12/04/21 History Metoprolol Succinate (ER) [Toprol 25 mg PO DAILY 11/27/21 12/04/21 History Xl] Pregabalin [Lyrica] 200 mg PO TID PRN 11/27/21 12/04/21 History lisinopriL [Zestril] 5 mg PO DAILY 11/27/21 12/04/21 History Furosemide [Lasix] 40 mg PO DAILY 30 Days #30 tablet 11/30/21 12/04/21 Rx Isosorbide Mononitrate ER [Imdur] 30 mg PO DAILY 12/04/21 12/04/21 History Allergies Allergy/AdvReac Type Severity Reaction Status Date / Time Iodinated Contrast Media Allergy Nausea & Verified 12/04/21 19:44 [Iodinated Contrast- Oral Vomiting and IV Dye] Physical Exam Vitals: Vital Signs Temp Pulse Resp BP Pulse Ox 12/04/21 17:50 98.0 F 88 16 90/62 98 Intake and Output 12/04/21 12/04/21 12/04/21 06:59 14:59 22:59 Other: Weight 95.254 kg Constitutional: No acute distress, conversant, pleasant Eyes: Anicteric sclerae, moist conjunctiva, Pupils equal round reactive to light ENMT: NC/AT Oropharynx clear, no erythema, or exudates Neck: Supple, no masses, or JVD No carotid bruits No thyromegaly Lungs: Clear to auscultation Clear to percussion Normal respiratory effort, no accessory muscle use Cardiovascular: Heart regular in rate and rhythm, No murmurs, gallops, or rubs No peripheral edema Abdominal: Soft Nontender, no guarding, rebound or rigidity Abdomen moving with respiration Normoactive bowel sounds No hepatomegaly, No splenomegaly No palpable mass No abdominal wall hernia noted Skin: Normal temperature, tone, texture, turgor No induration No subcutaneous nodules No rash, lesions No ulcers Extremities: No digital cyanosis No clubbing Pedal pulses intact and symmetrical Radial pulses intact and symmetrical No calf tenderness Psychiatric: Alert and oriented to person, place and time Appropriate affect fair judgement Neuro Muscles Strength 5/5 in all 4 extremities Sensation to light touch grossly present throughout Cranial nerves II-XII grossly intact No focal sensory deficits Lymphatics: no palpable cervical or supraclavicular , or inguinal lymph nodes Results CBC & Chem 7: 12/04/21 18:23 12/04/21 18:23 Labs: Abnormal Lab Results - Last 24 Hours (Table) 12/04/21 12/04/21 Range/Units 18:23 20:05 Sodium 136 L (137-145) mmol/L Carbon Dioxide 21 L (22-30) mmol/L BUN 27 H (9-20) mg/dL Glucose 106 H (74-99) mg/dL Total Bilirubin 1.6 H (0.2-1.3) mg/dL Coronavirus (PCR) Detected A (Not Detectd) Assessment and Plan Assessment: unstable angina recent left heart cath showing total occlusion of LAD Cardiology consult Heparin drip Aspirin, statin Pain control with morphine and nitro Monitor vital signs awake overnight monitor IV fluid hydration normal saline Trend troponins Covid positive Asymptomatic Currently on room air Start patient on zinc and vitamin C Full code DVT prophylaxis currently on heparin drip for chest pain Anticipated length of stay less than 2 midnights
[2021-12-04] MEDS: SODIUM CHLORIDE 0.9% 1,000 ML IV SCH (23:14)
[2021-12-04] MEDS ORDERED: ONDANSETRON 4 MG/2 ML VIAL IVP PRN (23:39)
[2021-12-05 08:45] LABS: Mean Platelet Volume 7.7; Platelet Count 179 k/uL (150-450)
[2021-12-05] MEDS: RANOLAZINE 500 MG TAB.ER.12H PO SCH ×2 (08:47→20:48)
[2021-12-05] MEDS: ISOSORBIDE MONONITRATE ER 30 MG TAB.ER.24H PO SCH (08:48)
[2021-12-05] MEDS: ZINC SULFATE 220 MG CAP PO SCH (08:48)
[2021-12-05] MEDS: ASCORBIC ACID 500 MG TAB PO SCH (08:48)
[2021-12-05] MEDS: METOPROLOL SUCCINATE (ER) 50 MG TAB.ER.24H PO SCH (08:48)
[2021-12-05] MEDS: ASPIRIN 81 MG PO SCH (08:48)
[2021-12-05] MEDS: PREGABALIN 100 MG CAP PO PRN ×2 (08:55→20:48)
[2021-12-05] MEDS ORDERED: METOPROLOL SUCCINATE (ER) 25 MG TAB.ER.24H PO SCH (09:00)
[2021-12-05] MEDS ORDERED: ASPIRIN 325 MG TAB PO SCH (09:00)
--- NOTE | 2021-12-05 11:57 | XR ---
EXAMINATION TYPE: XR chest 1V DATE OF EXAM: 12/05/2021 COMPARISON: Chest x-ray 12/04/2021 HISTORY: Cough TECHNIQUE: Single frontal view of the chest is obtained. FINDINGS: No interval change. There are overlying leads. Right hemidiaphragm mildly elevated. No dino dent airspace disease, pneumothorax, or pleural effusion. Cardiac mediastinal silhouette is stable. B ones are unchanged. Patient is mildly rotated. IMPRESSION: Stable exam, no acute cardiopulmonary disease
[2021-12-05 12:14] LABS: Basophils # (A) 0.1 k/uL (0-0.2); Basophils % (A) 1 %; Eosinophils % (A) 1 %; HCT 44.7 % (39.0-53.0); HGB 14.5 gm/dL (13.0-17.5); Lymphocytes # (A) 1.5 k/uL (1.0-4.8); Lymphocytes % (A) 27 %; MCH 29.5 pg (25.0-35.0); MCHC 32.4 g/dL (31.0-37.0); MCV 90.9 fL (80.0-100.0); Mean Platelet Volume 9.1; Monocytes # (A) 0.7 k/uL (0-1.0); Monocytes % (A) 13 %; Neutrophils # (A) 3.2 k/uL (1.3-7.7); Neutrophils % (A) 56 %; Platelet Count 185 k/uL (150-450); RBC 4.92 m/uL (4.30-5.90); RDW 12.8 % (11.5-15.5); WBC 5.6 k/uL (3.8-10.6)
[2021-12-05] MEDS: lisinopriL 5 MG TAB PO SCH (12:43)
--- NOTE | 2021-12-05 12:46 | P.CRDCN ---
History of Present Illness Consult date: 12/05/21 History of present illness: HISTORY OF PRESENT ILLNESS: This is a 66-year-old male with a past medical history significant for coronary artery disease, hypertension, and hyperlipidemia. Patient follows in the office with Dr. Duke. We have been asked to see the patient in consultation for chest pain. Patient examined at the bedside. Patient states that yesterday he began having chest discomfort around 3 PM. He states the pain was a sharp pain that radiated into his back. He states the pain lasted for a few minutes and then went away. He states the pain was not worse with exertion or movement. He does report having a cough and congestion. The patient was found to be positive for Covid 19 upon admission to the hospital. It is noted that the patient underwent a cardiac catheterization on 11/30/2021 revealing chronic total occlusion of the proximal LAD with extensive collaterals from the right to the distal LAD. The patient was scheduled to undergo PCI of the LAD with Dr. Montejo this week. EKG reveals sinus mechanism with Q waves anteriorly Chest xray no acute cardiopulmonary disease/process Laboratory data: WBC 5.6. Hemoglobin 14.5. Platelet count 185. D-dimer 0.53. Sodium 136. Potassium 4.3. BUN 27. Creatinine 1.22. Magnesium 2.3. troponin negative 3. Current home cardiac medications include Lasix 40 mg daily, Imdur 30 mg daily, metoprolol succinate 25 mg daily, lisinopril 5 mg daily, aspirin 81 mg twice a day, Lipitor 40 mg at night Patient underwent Lexiscan stress test in October 2021 revealing abnormal nuclear scan showing ischemic cardiomyopathy with moderate to severe LV dysfunction. Large area fixed perfusion defect involving the apex and mid to distal anterior wall with diminished endocardial thickening and motion on gated analysis suggestive of prior myocardial infarction REVIEW OF SYSTEMS: Thorough review of systems not completed secondary to limited evaluation/e xamination due to Covid19 PHYSICAL EXAM: Thorough physical exam not completed secondary to limited evaluation/examination due to Covid19 ASSESSMENT: Chest pain, troponins negative 3 Acute Covid 19 Coronary artery disease with chronic total occlusion of proximal LAD Hypertension Hyperlipidemia PLAN: An acute coronary event has been ruled out Discontinue IV heparin Increase metoprolol succinate 50 mg daily Add Ranexa 500 mg every 12 hours Obtain 2-D echo to assess cardiac structure and function Due to patients acute covid infection, we will continue with medical management at this time Patient to undergo PCI of the LAD after his covid infection resolves Further recommendations pending patient course Nurse practitioner note has been reviewed by physician. Signing provider agrees with the documented findings, assessment, and plan of care. Past Medical History Past Medical History: GERD/Reflux, Osteoarthritis (OA), Pneumonia Additional Past Medical History / Comment(s): Chronic pain to back of head with nerve involvement, had dog bite to hand, had rabies injections 2017. Hx Pneumonia 2016. Hx migraines, Had a cyst on the back of his head from injury with some nerve damage. Has stomach pain. CONSTIPATION, MIGRAINE HEADACHE, back pain, Covid History of Any Multi-Drug Resistant Organisms: None Reported Past Surgical History: Heart Catheterization Additional Past Surgical History / Comment(s): Large cyst removed from posterior head, PAIN CLINIC PROCEDURES. Past Anesthesia/Blood Transfusion Reactions: No Reported Reaction Past Psychological History: No Psychological Hx Reported Smoking Status: Never smoker Past Alcohol Use History: None Reported Past Drug Use History: None Reported - Past Family History Mother Family Medical History: Deep Vein Thrombosis (DVT) Sister(s) Additional Family Medical History / Comment(s): 1 sister aortic aneurysm, cerebral aneurysm Brother(s) Family Medical History: Cancer Additional Family Medical History / Comment(s): cerebral aneurysm Father Family Medical History: Myocardial Infarction ([place]) Additional Family Medical History / Comment(s): Father from [place] at 64 years old. Medications and Allergies Home Medications Medication Instructions Recorded Confirmed Type Atorvastatin [Lipitor] 40 mg PO HS 06/28/21 12/04/21 History Aspirin EC [Ecotrin Low Dose] 81 mg PO BID 11/27/21 12/04/21 History Metoprolol Succinate (ER) [Toprol 25 mg PO DAILY 11/27/21 12/04/21 History Xl] Pregabalin [Lyrica] 200 mg PO TID PRN 11/27/21 12/04/21 History lisinopriL [Zestril] 5 mg PO DAILY 11/27/21 12/04/21 History Furosemide [Lasix] 40 mg PO DAILY 30 Days #30 tablet 11/30/21 12/04/21 Rx Isosorbide Mononitrate ER [Imdur] 30 mg PO DAILY 12/04/21 12/04/21 History Allergies Allergy/AdvReac Type Severity Reaction Status Date / Time Iodinated Contrast Media Allergy Nausea & Verified 12/04/21 19:44 [Iodinated Contrast- Oral Vomiting and IV Dye] Physical Exam Vitals: Vital Signs Temp Pulse Pulse Resp BP BP Pulse Ox 12/05/21 07:00 98.2 F 75 16 125/73 95 12/05/21 05:47 74 22 120/67 97 12/05/21 03:56 98.8 F 76 22 105/62 96 12/04/21 23:54 74 16 104/78 90 L 12/04/21 19:54 76 20 94/65 95 12/04/21 17:50 98.0 F 88 16 90/62 98 Intake and Output 12/04/21 12/05/21 12/05/21 22:59 06:59 14:59 Intake Total 118 Balance 118 Intake: Oral 118 Other: Weight 95.254 kg 95.254 kg Results 12/05/21 08:07 12/04/21 18:23 Cardiac Enzymes 12/04/21 12/04/21 12/04/21 Range/Units 18:23 18:23 19:15 AST 21 (17-59) U/L Troponin I <0.012 <0.012 (0.000-0.034) ng/mL 12/05/21 Range/Units 00:51 AST (17-59) U/L Troponin I <0.012 (0.000-0.034) ng/mL Coagulation 12/04/21 12/04/21 12/05/21 Range/Units 18:23 19:15 00:51 PT 11.4 (9.0-12.0) sec APTT 25.6 25.6 60.3 H (22.0-30.0) sec 12/05/21 Range/Units 08:07 PT (9.0-12.0) sec APTT 56.8 H (22.0-30.0) sec CBC 12/04/21 12/05/21 12/05/21 Range/Units 18:23 08:07 08:07 WBC 6.6 5.6 (3.8-10.6) k/uL RBC 5.33 4.92 (4.30-5.90) m/uL Hgb 15.6 14.5 (13.0-17.5) gm/dL Hct 46.8 44.7 (39.0-53.0) % Plt Count 224 179 185 (150-450) k/uL Comprehensive Metabolic Panel 12/04/21 Range/Units 18:23 Sodium 136 L (137-145) mmol/L Potassium 4.3 (3.5-5.1) mmol/L Chloride 104 (98-107) mmol/L Carbon Dioxide 21 L (22-30) mmol/L BUN 27 H (9-20) mg/dL Creatinine 1.22 (0.66-1.25) mg/dL Glucose 106 H (74-99) mg/dL Calcium 9.4 (8.4-10.2) mg/dL AST 21 (17-59) U/L ALT 16 (4-49) U/L Alkaline Phosphatase 61 (38-126) U/L Total Protein 6.7 (6.3-8.2) g/dL Albumin 4.1 (3.5-5.0) g/dL Current Medications Generic Name Dose Route Start Last Admin Trade Name Freq PRN Reason Stop Dose Admin Ascorbic Acid 500 mg 12/05/21 09:00 12/05/21 08:48 Ascorbic Acid 500 Mg Tab PO 500 mg DAILY BLAISE Administration Aspirin 81 mg 12/05/21 09:00 12/05/21 08:48 Aspirin 81 Mg PO 81 mg DAILY BLAISE Administration Atorvastatin Calcium 40 mg 12/05/21 21:00 Atorvastatin 40 Mg Tab PO HS [facility] Sodium Chloride 1,000 mls @ 75 mls/hr 12/04/21 23:15 12/04/21 23:14 Saline 0.9% IV 75 mls/hr .[id number] BLAISE Administration Isosorbide Mononitrate 30 mg 12/05/21 09:00 12/05/21 08:48 Isosorbide Mononitrate Er 30 Mg Tab.Er.24h PO 30 mg DAILY BLAISE Administration Lisinopril 5 mg 12/05/21 09:00 Lisinopril 5 Mg Tab PO DAILY [facility] Metoprolol Succinate 50 mg 12/05/21 09:00 12/05/21 08:48 Metoprolol Succinate (Er) 50 Mg Tab.Er.24h PO 50 mg DAILY BLAISE Administration Morphine Sulfate 2 mg 12/04/21 19:04 Morphine Sulfate 2 Mg/Ml Syringe IVP Q5M PRN Chest Pain Nitroglycerin 0.4 mg 12/04/21 19:04 Nitroglycerin Sl Tabs 0.4 Mg Tab SUBLINGUAL Q5M PRN Chest Pain Ondansetron HCl 4 mg 12/04/21 23:39 12/04/21 23:48 Ondansetron 4 Mg/2 Ml Vial IVP 4 mg Q6HR PRN Administration Nausea And Vomiting Pregabalin 200 mg 12/04/21 22:27 12/05/21 08:55 Pregabalin 100 Mg Cap PO 200 mg TID PRN Administration Pain Ranolazine 500 mg 12/05/21 09:00 12/05/21 08:47 Ranolazine 500 Mg Tab.Er.12h PO 500 mg Q12HR BLAISE Administration Zinc Sulfate 220 mg 12/05/21 09:00 12/05/21 08:48 Zinc Sulfate 220 Mg Cap PO 220 mg DAILY BLAISE Administration Zolpidem Tartrate 5 mg 12/04/21 22:29 Zolpidem 5 Mg Tab PO HS PRN Insomnia Intake and Output 12/04/21 12/05/21 12/05/21 22:59 06:59 14:59 Intake Total 118 Balance 118 Intake: Oral 118 Other: Weight 95.254 kg 95.254 kg Patient Weight 12/06/21 06:59 Weight 95.254 kg 12/05/21 08:07 12/04/21 18:23
--- NOTE | 2021-12-05 12:54 | P.CNPUL ---
History of Present Illness Consult date: 12/05/21 Requesting physician: Marcos Clark Reason for consult: chest pain Chief complaint: Chest pain History of present illness: This is a 66-year-old white male patient of Dr. Mendoza, with past medical history of osteoarthritis, migraine headaches, chronic severe neck pain and headache related to occipital neuralgia, cervical spondylosis with cervical facet arthropathy with previous occipital nerve blocks. Patient presented to the emergency department on 12/04/2021 for evaluation of chest pain. Patient has had chest pain for many months, which recently worsened. Patient describes his pain as sharp with constant background dull achy pain and heaviness on exertion, and had a recent heart catheterization which showed a totally occluded LAD she will schedule for a repeat heart catheterization in the upcoming week. Patient did admit to having a cough and dyspnea for a day and a half. No fever or chills. No phlegm production. Patient is not vaccinated against COVID-19, he states he had no idea he could be COVID positive. He resides at home with his and his grandson and both of home were asymptomatic. Denied any vomiting or diaphoresis, no abdominal pain, no shortness of breath. Chest x-ray was unremarkable, EKG showed sinus rhythm with no acute ST changes. His lab w ork showed that CBC which was within normal limits, correlation profile was within normal limits, x-rays were unremarkable, BUN is 27 creatinine is 1.2, 3 sets of troponins were less than 0.012, LFTs were within normal limits, patient was tested for COVID-19 and was found to be positive. Patient was started on heparin infusion for unstable angina, heart etiology is consulting. Has follow- up chest x-ray shows no acute cardiopulmonary disease. Room air pulse ox is 95%, he is afebrile, hemodynamically he is stable. Currently echocardiogram is pending, d-dimer is pending, lipid panel and follow-up CBC and metabolic profile are also pending. Review of Systems All systems: negative Constitutional: Denies chills, Denies fever Eyes: denies blurred vision, denies pain Ears, nose, mouth and throat: Denies headache, Denies sore throat Cardiovascular: Reports chest pain, Denies shortness of breath Respiratory: Reports pleurisy, Denies cough Gastrointestinal: Denies abdominal pain, Denies diarrhea, Denies nausea, Denies vomiting Musculoskeletal: Denies myalgias Integumentary: Denies pruritus, Denies rash Neurological: Denies numbness, Denies weakness Psychiatric: Denies anxiety, Denies depression Endocrine: Denies fatigue, Denies weight change Past Medical History Past Medical History: GERD/Reflux, Osteoarthritis (OA), Pneumonia Additional Past Medical History / Comment(s): Chronic pain to back of head with nerve involvement, had dog bite to hand, had rabies injections 2017. Hx Pneumonia 2016. Hx migraines, Had a cyst on the back of his head from injury with some nerve damage. Has stomach pain. CONSTIPATION, MIGRAINE HEADACHE, back pain, Covid History of Any Multi-Drug Resistant Organisms: None Reported Past Surgical History: Heart Catheterization Additional Past Surgical History / Comment(s): Large cyst removed from posterior head, PAIN CLINIC PROCEDURES. Past Anesthesia/Blood Transfusion Reactions: No Reported Reaction Past Psychological History: No Psychological Hx Reported Smoking Status: Never smoker Past Alcohol Use History: None Reported Past Drug Use History: None Reported - Past Family History Mother Family Medical History: Deep Vein Thrombosis (DVT) Sister(s) Additional Family Medical History / Comment(s): 1 sister aortic aneurysm, cerebral aneurysm Brother(s) Family Medical History: Cancer Additional Family Medical History / Comment(s): cerebral aneurysm Father Family Medical History: Myocardial Infarction ([place]) Additional Family Medical History / Comment(s): Father from [place] at 64 years old. Medications and Allergies Home Medications Medication Instructions Recorded Confirmed Type Atorvastatin [Lipitor] 40 mg PO HS 06/28/21 12/04/21 History Aspirin EC [Ecotrin Low Dose] 81 mg PO BID 11/27/21 12/04/21 History Metoprolol Succinate (ER) [Toprol 25 mg PO DAILY 11/27/21 12/04/21 History Xl] Pregabalin [Lyrica] 200 mg PO TID PRN 11/27/21 12/04/21 History lisinopriL [Zestril] 5 mg PO DAILY 11/27/21 12/04/21 History Furosemide [Lasix] 40 mg PO DAILY 30 Days #30 tablet 11/30/21 12/04/21 Rx Isosorbide Mononitrate ER [Imdur] 30 mg PO DAILY 12/04/21 12/04/21 History Allergies Allergy/AdvReac Type Severity Reaction Status Date / Time Iodinated Contrast Media Allergy Nausea & Verified 12/04/21 19:44 [Iodinated Contrast- Oral Vomiting and IV Dye] Physical Exam Vitals: Vital Signs Temp Pulse Pulse Resp BP BP Pulse Ox 12/05/21 07:00 98.2 F 75 16 125/73 95 12/05/21 05:47 74 22 120/67 97 12/05/21 03:56 98.8 F 76 22 105/62 96 12/04/21 23:54 74 16 104/78 90 L 12/04/21 19:54 76 20 94/65 95 12/04/21 17:50 98.0 F 88 16 90/62 98 Intake and Output 12/04/21 12/05/21 12/05/21 22:59 06:59 14:59 Intake Total 118 Balance 118 Intake: Oral 118 Other: Weight 95.254 kg 95.254 kg GENERAL EXAM: Alert, very pleasant, 66-year-old white male, on room air with a pulse ox of 95%, comfortable in no apparent distress. HEAD: Normocephalic/atraumatic. EYES: Normal reaction of pupils, equal size. Conjunctiva pink, sclera white. NOSE: Clear with pink turbinates. THROAT: No erythema or exudates. NECK: No masses, no JVD, no thyroid enlargement, no adenopathy. CHEST: No chest wall deformity. Symmetrical expansion. LUNGS: Equal air entry with no crackles, wheeze, rhonchi or dullness. CVS: Regular rate and rhythm, normal S1 and S2, no gallops, no murmurs, no rubs ABDOMEN: Soft, nontender. No hepatosplenomegaly, normal bowel sounds, no guarding or rigidity. EXTREMITIES: No clubbing, no edema, no cyanosis, 2+ pulses and upper and lower extremities. MUSCULOSKELETAL: Muscle strength and tone normal. SPINE: No scoliosis or deformity SKIN: No rashes CENTRAL NERVOUS SYSTEM: Alert and oriented -3. No focal deficits, tone is normal in all 4 extremities. PSYCHIATRIC: Alert and oriented -3. Appropriate affect. Intact judgment and insight. Results - Laboratory Findings CBC and BMP: 12/05/21 08:07 12/04/21 18:23 PT/INR, D-dimer PT 11.4 sec (9.0-12.0) 12/04/21 18:23 INR 1.1 (<1.2) 12/04/21 18:23 Abnormal lab findings: Abnormal Labs 12/04/21 12/04/21 12/05/21 18:23 20:05 00:51 APTT 60.3 H Sodium 136 L Carbon Dioxide 21 L BUN 27 H Glucose 106 H Total Bilirubin 1.6 H Coronavirus (PCR) Detected A 12/05/21 08:07 APTT 56.8 H Sodium Carbon Dioxide BUN Glucose Total Bilirubin Coronavirus (PCR) - Diagnostic Findings Chest x-ray: report reviewed, image reviewed Additional studies: EKG reviewed Assessment and Plan Plan: Assessment: #1. Chest pain, likely related to unstable angina. Recent left heart cath showing total occlusion of the LAD, pending possible angioplasty. 3 sets of cardiac troponins were negative #2. Rule out possibility of pulmonary embolism, d-dimer is pending, patient on heparin infusion. We'll proceed with CT angiogram of the chest today #3. Acute COVID-19 infection without hypoxia or pneumonia, with onset of cough and dyspnea one half days prior to presentation. Patient is not vaccinated against COVID-19. Patient does qualify for Remdesivir per the revised COVID-19 treatment guidelines #4. Evidence of new onset cardiomyopathy with evidence of prior apical myocardial infarction, LVEDP on the heart catheterization from 11/30/2021 was 30 mm #5. Osteoarthritis #6. History of chronic severe neck pain and headaches, occipital neuralgia #7. Cervical spondylosis with cervical facet arthropathy #8. Nonsmoker Plan: Patient is on room air, breathing comfortably, Onset of symptoms was 1-1/2 days ago with mild dyspnea and cough Patient does qualify for Remdesivir, we'll give him an initial loading infusion today, he could be discharged home with arrangements in place for infusion of Remdesivir for 2 more days No need for Decadron We'll obtain CT angiogram of the chest to rule out possibility of pulmonary embolism Patient continues on heparin infusion for unstable angina Cardiology recommendations If CT angiogram is negative for pulmonary embolism, and if cardiology clears the patient, we can consider discharging the patient home on 2 more days of Remdesivir Patient will need to purchase a pulse ox, and monitor his oxygen saturation levels, He will need to come back to be reevaluated in case of worsening dyspnea or hypoxia For now obtain set of inflammatory markers We'll follow his clinical course I performed a history & physical examination of the patient and discussed their management with my nurse practitioner, Farzaneh Valenzuela. I reviewed the nurse practitioner's note and agree with the documented findings and plan of care. Lung sounds are positive for dim breath sounds throughout the lung brewer. The findings and the impression was discussed with the patient. I attest to the documentation by the nurse practitioner. Time with Patient: Greater than 30
[2021-12-05 13:26] LABS: African American GFR (CKD) 67 (>60 ml/min/1.73 sqM); Anion Gap 10 mmol/L; Blood Urea Nitrogen 29 mg/dL (9-20); Calcium 8.9 mg/dL (8.4-10.2); Carbon Dioxide 21 mmol/L (22-30); Chloride 104 mmol/L (98-107); Glucose 100 mg/dL (74-99); Non-African American GFR(CKD) 58 (>60 ml/min/1.73 sqM); Potassium 4.3 mmol/L (3.5-5.1); Sodium 135 mmol/L (137-145)
[2021-12-05] MEDS ORDERED: REMDESIVIR 200 MG in SODIUM CHLORIDE 0.9% 250 ML IVPB ONE (14:00)
[2021-12-05] MEDS ORDERED: SOTROVIMAB (EUA) 500 MG in SODIUM CHLORIDE 0.9% 100 ML IVPB ONE (14:00)
--- NOTE | 2021-12-05 14:29 | P.DS ---
Providers Date of admission: 12/04/21 19:17 Expected date of discharge: 12/05/21 Attending physician: Marcos Clark MD Consults: 12/04/21 19:04 Consult Physician Urgent Consulting Provider: Brando Duke Consult Reason/Comments: Unstable angina Do you want consulting provider notified?: Already Contacted 12/05/21 11:19 Consult Physician Routine Consulting Provider: Margarita Locke Consult Reason/Comments: covid-19 with hypoxia Do you want consulting provider notified?: Yes Primary care physician: Aston Mendoza MD Hospital Course: HISTORY OF PRESENT ILLNESS: This is a 66-year-old male with a past medical history significant for coronary artery disease, hypertension, and hyperlipidemia. Patient follows in the office with Dr. Duke. We have been asked to see the patient in consultation for chest pain. Patient examined at the bedside. Patient states that yesterday he began having chest discomfort around 3 PM. He states the pain was a sharp pain that radiated into his back. He states the pain lasted for a few minutes and then went away. He states the pain was not worse with exertion or movement. He does report having a cough and congestion. The patient was found to be positive for Covid 19 upon admission to the hospital. It is noted that the patient underwent a cardiac catheterization on 11/30/2021 revealing chronic total occlusion of the proximal LAD with extensive collaterals from the right to the distal LAD. The patient was scheduled to undergo PCI of the LAD with Dr. Montejo this week. EKG reveals sinus mechanism with Q waves anteriorly Chest xray no acute cardiopulmonary disease/process Laboratory data: WBC 5.6. Hemoglobin 14.5. Platelet count 185. D-dimer 0.53. Sodium 136. Potassium 4.3. BUN 27. Creatinine 1.22. Magnesium 2.3. troponin negative 3. Current home cardiac medications include Lasix 40 mg daily, Imdur 30 mg daily, metoprolol succinate 25 mg daily, lisinopril 5 mg daily, aspirin 81 mg twice a day, Lipitor 40 mg at night Patient underwent Lexiscan stress test in October 2021 revealing abnormal nuclear scan showing ischemic cardiomyopathy with moderate to severe LV dysfunction. Large area fixed perfusion defect involving the apex and mid to distal anterior wall with diminished endocardial thickening and motion on gated analysis suggestive of prior myocardial infarction Detailed problem list: #Chest pain with exertional dyspnea -Acute coronary event has been ruled out. -Cardiology discontinued IV heparin. -Broadcast Maintenance Technician Increase metoprolol succinate 50 mg daily and added Ranexa 500 mg every 12 hours. -Due to patients acute covid infection, we will continue with medical management at this time -Cardiology cleared the patient for discharge and they are planning left heart cath for the patient to undergo PCI of the LAD after his covid infection resolves #COVID-19 infection: -Patient on room air -D dimers are negative -Chest x-ray without infiltrate -Pulmonary ordered Monoclonal antibodies and cleared the patient for discharge Assessment: General: non toxic, no distress, appears at stated age Derm: warm, dry Head: atraumatic, normocephalic, symmetric Eyes: EOMI, no lid lag, anicteric sclera Mouth: no lip lesion, mucus membranes moist Cardiovascular: S1S2 reg, no murmur, positive posterior tibial pulse bilateral, Lungs: CTA bilateral, no rhonchi, no rales , no accessory muscle use Abdominal: soft, nontender to palpation, no guarding, no appreciable organomega ly Ext: no gross muscle atrophy, no edema, no contractures Neuro: CN II-XI grossly intact, no focal neuro deficits Psych: Alert, oriented, appropriate affect Patient Condition at Discharge: Stable Plan - Discharge Summary New Discharge Prescriptions: New Ranolazine [Ranexa] 500 mg PO Q12HR 30 Days #60 tablet Metoprolol Succinate (ER) [Toprol XL] 50 mg PO DAILY 30 Days #30 Metoprolol Succinate (ER) [Toprol Xl] 50 mg PO DAILY 30 Days #30 tab Continue Atorvastatin [Lipitor] 40 mg PO HS Aspirin EC [Ecotrin Low Dose] 81 mg PO BID Pregabalin [Lyrica] 200 mg PO TID PRN PRN Reason: Pain Isosorbide Mononitrate ER [Imdur] 30 mg PO DAILY lisinopriL [Zestril] 5 mg PO DAILY Furosemide [Lasix] 40 mg PO DAILY 30 Days #30 tablet Discontinued Metoprolol Succinate (ER) [Toprol Xl] 25 mg PO DAILY Discharge Medication List Atorvastatin [Lipitor] 40 mg PO HS 06/28/21 [History] Aspirin EC [Ecotrin Low Dose] 81 mg PO BID 11/27/21 [History] Pregabalin [Lyrica] 200 mg PO TID PRN 11/27/21 [History] lisinopriL [Zestril] 5 mg PO DAILY 11/27/21 [History] Furosemide [Lasix] 40 mg PO DAILY 30 Days #30 tablet 11/30/21 [Rx] Isosorbide Mononitrate ER [Imdur] 30 mg PO DAILY 12/04/21 [History] Metoprolol Succinate (ER) [Toprol XL] 50 mg PO DAILY 30 Days #30 12/05/21 [Rx] Metoprolol Succinate (ER) [Toprol Xl] 50 mg PO DAILY 30 Days #30 tab 12/05/21 [Rx] Ranolazine [Ranexa] 500 mg PO Q12HR 30 Days #60 tablet 12/05/21 [Rx] Follow up Appointment(s)/Referral(s): Aston Mendoza MD [Primary Care Provider] - 1-2 days Discharge Disposition: HOME SELF-CARE
[2021-12-05] MEDS ORDERED: SODIUM CHLORIDE 0.9% 50 ML IVPB ONE (14:30)
[2021-12-05] MEDS: SODIUM CHLORIDE 0.9% 1,000 ML IV SCH (14:49)
[2021-12-05 15:11] LABS: Chol/HDL Ratio 4.21 Ratio; LDL Cholesterol,Calculated 90.1 mg/dL (0.0-131.0); VLDL Calculation 18.16 mg/dL (5.00-40.00)
[2021-12-05] MEDS: HEPARIN SODIUM,PORCINE/PF 5,000 UNIT/0.5 ML SYRINGE SQ SCH ×2 (16:21→20:49)
--- NOTE | 2021-12-05 18:12 | P.PN ---
Subjective Progress Note Date: 12/05/21 This is a 66-year-old male with a past medical history significant for coronary artery disease, hypertension, and hyperlipidemia. Patient follows in the office with Dr. Duke. We have been asked to see the patient in consultation for chest pain. Patient examined at the bedside. Patient states that yesterday he began having chest discomfort around 3 PM. He states the pain was a sharp pain that radiated into his back. He states the pain lasted for a few minutes and then went away. He states the pain was not worse with exertion or movement. He does report having a cough and congestion. The patient was found to be positive for Covid 19 upon admission to the hospital. It is noted that the patient underwent a cardiac catheterization on 11/30/2021 revealing chronic total occlusion of the proximal LAD with extensive collaterals from the right to the distal LAD. The patient was scheduled to undergo PCI of the LAD with Dr. Montejo this week. EKG reveals sinus mechanism with Q waves anteriorly Chest xray no acute cardiopulmonary disease/process Laboratory data: WBC 5.6. Hemoglobin 14.5. Platelet count 185. D-dimer 0.53. Sodium 136. Potassium 4.3. BUN 27. Creatinine 1.22. Magnesium 2.3. troponin negative 3. Current home cardiac medications include Lasix 40 mg daily, Imdur 30 mg daily, metoprolol succinate 25 mg daily, lisinopril 5 mg daily, aspirin 81 mg twice a day, Lipitor 40 mg at night Patient underwent Lexiscan stress test in October 2021 revealing abnormal nuc lear scan showing ischemic cardiomyopathy with moderate to severe LV dysfunction. Large area fixed perfusion defect involving the apex and mid to distal anterior wall with diminished endocardial thickening and motion on gated analysis suggestive of prior myocardial infarction Interval history: Patient is an indeterminate episode. He is currently on room air. Patient was admitted by cardiology and 2-D echo ordered. Pulmonary the patient ordered monoclonal antibodies Objective - Vital Signs Vital signs: Vital Signs Temp 98.4 F 12/05/21 14:44 Pulse 72 12/05/21 14:44 Resp 16 12/05/21 14:44 BP 102/55 12/05/21 14:44 Pulse Ox 94 L 12/05/21 14:44 Intake & Output 12/04/21 12/05/21 12/05/21 18:59 06:59 18:59 Intake Total 118 Balance 118 Weight 95.254 kg 95.254 kg Intake: Oral 118 Other: # Voids 3 - Exam General: non toxic, no distress, appears at stated age Derm: warm, dry Head: atraumatic, normocephalic, symmetric Eyes: EOMI, no lid lag, anicteric sclera Mouth: no lip lesion, mucus membranes moist Cardiovascular: S1S2 reg, no murmur, positive posterior tibial pulse bilateral, Lungs: CTA bilateral, no rhonchi, no rales , no accessory muscle use Abdominal: soft, nontender to palpation, no guarding, no appreciable organomegaly Ext: no gross muscle atrophy, no edema, no contractures Neuro: CN II-XI grossly intact, no focal neuro deficits Psych: Alert, oriented, appropriate affect - Labs CBC & Chem 7: 12/05/21 08:07 12/05/21 08:07 Labs: Abnormal Lab Results - Last 24 Hours (Table) 12/04/21 12/04/21 12/05/21 Range/Units 18:23 20:05 00:51 APTT 60.3 H (22.0-30.0) sec Sodium 136 L (137-145) mmol/L Carbon Dioxide 21 L (22-30) mmol/L BUN 27 H (9-20) mg/dL Creatinine (0.66-1.25) mg/dL Glucose 106 H (74-99) mg/dL Total Bilirubin 1.6 H (0.2-1.3) mg/dL HDL Cholesterol (40.00-60.00) mg/dL Coronavirus (PCR) Detected A (Not Detectd) 12/05/21 12/05/21 12/05/21 Range/Units 08:07 08:07 08:07 APTT 56.8 H (22.0-30.0) sec Sodium 135 L (137-145) mmol/L Carbon Dioxide 21 L (22-30) mmol/L BUN 29 H (9-20) mg/dL Creatinine 1.29 H (0.66-1.25) mg/dL Glucose 100 H (74-99) mg/dL Total Bilirubin (0.2-1.3) mg/dL HDL Cholesterol 33.70 L (40.00-60.00) mg/dL Coronavirus (PCR) (Not Detectd) 12/05/21 Range/Units 14:35 APTT 63.0 H (22.0-30.0) sec Sodium (137-145) mmol/L Carbon Dioxide (22-30) mmol/L BUN (9-20) mg/dL Creatinine (0.66-1.25) mg/dL Glucose (74-99) mg/dL Total Bilirubin (0.2-1.3) mg/dL HDL Cholesterol (40.00-60.00) mg/dL Coronavirus (PCR) (Not Detectd) Assessment and Plan Assessment: Assessment and plan:: #Chest pain with exertional dyspnea -Acute coronary event has been ruled out. -Cardiology discontinued IV heparin. -Public Housing Manager Increase metoprolol succinate 50 mg daily and added Ranexa 500 mg every 12 hours. -Due to patients acute covid infection, we will continue with medical management at this time -Cardiology order 2-D echo -Cardiology planning left heart cath for the patient to undergo PCI of the LAD after his covid infection resolves #COVID-19 infection: -Patient on room air -D dimers are negative -Chest x-ray without infiltrate -Pulmonary ordered Monoclonal antibodies and cleared the patient for discharge
[2021-12-05] MEDS ORDERED: ATORVASTATIN 40 MG TAB PO SCH (21:00)
[2021-12-06] MEDS: SODIUM CHLORIDE 0.9% 1,000 ML IV SCH (02:12)
[2021-12-06 04:39] VITALS: RESP 18
[2021-12-06 07:22] VITALS: BP 109/69; PULSE 63; TEMP 98
[2021-12-06] MEDS: HEPARIN SODIUM,PORCINE/PF 5,000 UNIT/0.5 ML SYRINGE SQ SCH (08:25)
[2021-12-06] MEDS: ISOSORBIDE MONONITRATE ER 30 MG TAB.ER.24H PO SCH (08:26)
[2021-12-06] MEDS: METOPROLOL SUCCINATE (ER) 50 MG TAB.ER.24H PO SCH (08:26)
[2021-12-06] MEDS: ZINC SULFATE 220 MG CAP PO SCH (08:27)
[2021-12-06] MEDS: lisinopriL 5 MG TAB PO SCH (08:27)
[2021-12-06] MEDS: ASCORBIC ACID 500 MG TAB PO SCH (08:27)
[2021-12-06] MEDS: ASPIRIN 81 MG PO SCH (08:27)
[2021-12-06] MEDS: RANOLAZINE 500 MG TAB.ER.12H PO SCH (08:27)
--- NOTE | 2021-12-06 11:00 | P.PN ---
Subjective Progress Note Date: 12/06/21 HISTORY OF PRESENT ILLNESS: This is a 66-year-old male with a past medical history significant for coronary artery disease, hypertension, and hyperlipidemia. Patient follows in the office with Dr. Duke. We have been asked to see the patient in consultation for chest pain. Patient examined at the bedside. Patient states that yesterday he began having chest discomfort around 3 PM. He states the pain was a sharp pain that radiated into his back. He states the pain lasted for a few minutes and then went away. He states the pain was not worse with exertion or movement. He does report having a cough and congestion. The patient was found to be positive for Covid 19 upon admission to the hospital. It is noted that the patient underwent a cardiac catheterization on 11/30/2021 revealing chronic total occlusion of the proximal LAD with extensive collaterals from the right to the distal LAD. The patient was scheduled to undergo PCI of the LAD with Dr. Montejo this week. EKG reveals sinus mechanism with Q waves anteriorly Chest xray no acute cardiopulmonary disease/process Laboratory data: WBC 5.6. Hemoglobin 14.5. Platelet count 185. D-dimer 0.53. Sodium 136. Potassium 4.3. BUN 27. Creatinine 1.22. Magnesium 2.3. troponin negative 3. Current home cardiac medications include Lasix 40 mg daily, Imdur 30 mg daily, metoprolol succinate 25 mg daily, lisinopril 5 mg daily, aspirin 81 mg twice a day, Lipitor 40 mg at night Patient underwent Lexiscan stress test in October 2021 revealing abnormal nuclear scan showing ischemic cardiomyopathy with moderate to severe LV dysfunction. Large area fixed perfusion defect involving the apex and mid to distal anterior wall with diminished endocardial thickening and motion on gated analysis suggestive of prior myocardial infarction 12/06/2021 Spoke to patients nurse regarding patient this AM. Patient with no further episodes of chest pain or pressure. No compensatory shortness of breath. Preliminary echo read by Dr. Garcia revealing ejection fraction around 35%. Vital signs are currently stable. PHYSICAL EXAM: Thorough physical exam not completed secondary to limited evaluation/examination due to Covid19 ASSESSMENT: Chest pain, troponins negative 3 Acute Covid 19 Coronary artery disease with chronic total occlusion of proximal LAD Hypertension Hyperlipidemia PLAN: Continue current cardiac medications Due to patients acute covid infection, we will continue with medical management at this time Patient to undergo PCI of the LAD after his covid infection resolves The patient may be discharged home today from a cardiac standpoint and follow up on an outpatient basis with Dr. Martínez Nurse practitioner note has been reviewed by physician. Signing provider agrees with the documented findings, assessment, and plan of care. Objective - Vital Signs Vital signs: Vital Signs Temp 98.0 F 12/06/21 07:00 Pulse 63 12/06/21 07:00 Resp 18 12/06/21 07:00 BP 109/69 12/06/21 07:00 Pulse Ox 97 12/06/21 07:00 Intake & Output 12/05/21 12/06/21 12/06/21 18:59 06:59 18:59 Intake Total 118 118 Balance 118 118 Weight 95.254 kg Intake: Oral 118 118 Other: # Voids 3 2 - Labs CBC & Chem 7: 12/05/21 08:07 12/05/21 08:07 Labs: Abnormal Lab Results - Last 24 Hours (Table) 12/05/21 12/05/21 12/05/21 Range/Units 08:07 08:07 14:35 APTT 63.0 H (22.0-30.0) sec Sodium 135 L (137-145) mmol/L Carbon Dioxide 21 L (22-30) mmol/L BUN 29 H (9-20) mg/dL Creatinine 1.29 H (0.66-1.25) mg/dL Glucose 100 H (74-99) mg/dL HDL Cholesterol 33.70 L (40.00-60.00) mg/dL
[2021-12-06 11:41] LABS: African American GFR (CKD) 73.6 (60.0-200.0); Albumin 3.8 g/dL (3.8-4.9); Albumin/Globulin Ratio 1.9 (1.60-3.17); Anion Gap 12.6 mmol/L (10.00-18.00); BUN/Creat Ratio 20.25 Ratio (12.00-20.00); Blood Urea Nitrogen 24.3 mg/dL (9.0-27.0); Calcium 8.4 mg/dL (8.7-10.3); Carbon Dioxide 21.4 mmol/L (20.0-27.5); Magnesium 2.1 mg/dL (1.5-2.4); Non-African American GFR(CKD) 63.5 (60.0-200.0); Potassium 4.7 mmol/L (3.5-5.5); Total Bilirubin 0.8 mg/dL (0.30-1.20); Total Protein 5.8 g/dL (6.2-8.2)
[2021-12-06 12:17] LABS: Basophils # (A) 0.02 X 10*3/uL (0.00-0.10); Basophils % (A) 0.4 %; Eosinophils # (A) 0.02 X 10*3/uL (0.04-0.35); Eosinophils % (A) 0.4 %; HCT 42.9 % (39.6-50.0); HGB 13.5 g/dL (13.0-17.0); Immature Grans, Automated 0.4 %; Lymphocytes # (A) 2.07 X 10*3/uL (0.90-5.00); Lymphocytes % (A) 41.1 %; MCH 28.2 pg (27.0-32.0); MCHC 31.5 g/dL (32.0-37.0); MCV 89.6 fL (80.0-97.0); Mean Platelet Volume 10.8 fL (9.5-12.2); Monocytes # (A) 0.71 X 10*3/uL (0.20-1.00); Monocytes % (A) 14.1 %; NRBC Per 100 WBC 0 /100 WBCS (0.0-0.0); Neutrophils % (A) 43.6 %; Platelet Count 161 X 10*3/uL (140-440); RBC 4.79 X 10*6/uL (4.40-5.60); RDW 13.4 % (11.5-14.5); WBC 5.04 X 10*3/uL (4.50-10.00)
[2021-12-06] MEDS ORDERED: REMDESIVIR 100 MG in SODIUM CHLORIDE 0.9% 250 ML IVPB SCH (14:00)
--- NOTE | 2021-12-18 13:33 | ECHOF ---
Referral Reason:LV function, chest pain, hx of CAD MEASUREMENTS -------- HEIGHT: 0.0 cm WEIGHT: 0.0 kg BP: FINDINGS -------- Limited study due to Covid 19 exposure. Overall left ventricular systolic function is moderate-severely impaired with, an EF between 30 - 35 %. Anterseptal Hypokinesis Septal Hypokinesis 5.0mg OF Lumason UTLIZED: 2 OR MORE WALL SEGMENTS NOT VISUALIZED. CONCLUSIONS -------- 1. Limited study due to Covid 19 exposure. 2. Overall left ventricular systolic function is moderate-severely impaired with, an EF between 30 - 35 %. 3. Anterseptal Hypokinesis 4. Septal Hypokinesis 5. 5.0mg OF Lumason UTLIZED: 2 OR MORE WALL SEGMENTS NOT VISUALIZED. LADLE REPAIRMAN: Mahnaz Lackey RDCS
== END 2021-12-06 13:29 | disposition home or self-care (01) ==
LOC: EC 17:39 → 6NMEDSUR 19:17
PROVIDERS: ADMIT Internal Medicine; ATTEND Internal Medicine
DX: R07.89 Other chest pain (principal); U07.1 COVID-19; I25.82 Chronic total occlusion of coronary artery; I25.10 Atherosclerotic heart disease of native coronary artery without angina pectoris; I25.5 Ischemic cardiomyopathy; I10 Essential (primary) hypertension; E78.5 Hyperlipidemia, unspecified; G43.909 Migraine, unspecified, not intractable, without status migrainosus; G89.29 Other chronic pain; M54.81 Occipital neuralgia; M47.812 Spondylosis without myelopathy or radiculopathy, cervical region; M46.92 Unspecified inflammatory spondylopathy, cervical region; M19.90 Unspecified osteoarthritis, unspecified site; K21.9 Gastro-esophageal reflux disease without esophagitis; I25.2 Old myocardial infarction; R09.02 Hypoxemia; Z79.82 Long term (current) use of aspirin; Z79.899 Other long term (current) drug therapy; Z91.041 Radiographic dye allergy status; Z87.01 Personal history of pneumonia (recurrent); Z87.828 Personal history of other (healed) physical injury and trauma; Z98.890 Other specified postprocedural states; Z82.49 Family history of ischemic heart disease and other diseases of the circulatory system; Z80.9 Family history of malignant neoplasm, unspecified
CPT/HCPCS: 96366 ×3; 96372 ×2; 96376; 96365; 96375; 99291; 36415; 93005; 85379; 80061; 80053 ×2; 80048; 83735 ×2; 84484 ×2; 85025 ×3; 85049; 85610; 85730 ×2; 87635; 71045; 71046; G0378 ×3; M0247; C8924; J2405; J2270; J1644 ×4; Q9950; Q0247; J0248; 93308

== ENCOUNTER 2022-01-10 05:40 | Observation (INO) | payer OTHER ==
[2022-01-10] MEDS ORDERED: ALPRAZolam 0.25 MG TAB PO PRN (05:56)
[2022-01-10] MEDS ORDERED: ALPRAZolam 0.5 MG TAB PO PRN (05:56)
[2022-01-10] MEDS ORDERED: NITROGLYCERIN SL TABS 0.4 MG TAB SUBLINGUAL PRN ×2 (05:56→08:55)
[2022-01-10] MEDS ORDERED: HEPARIN SODIUM,PORCINE 10,000 UNIT in SODIUM CHLORIDE 0.9% 1,000 ML IRRIGATION PRN (05:56)
[2022-01-10] MEDS ORDERED: HEPARIN SODIUM,PORCINE 2,500 UNIT in SODIUM CHLORIDE 0.9% 250 ML IRRIGATION PRN (05:56)
[2022-01-10] MEDS: SODIUM CHLORIDE 0.9% 1,000 ML in EMPTY BAG 1 BAG IV SCH ×2 (06:20→17:28)
[2022-01-10 06:45] LABS: Basophils % (A) 0 %; Eosinophils # (A) 0.1 k/uL (0-0.7); Eosinophils % (A) 1 %; HCT 46.2 % (39.0-53.0); Lymphocytes # (A) 2.4 k/uL (1.0-4.8); Lymphocytes % (A) 19 %; MCH 30.4 pg (25.0-35.0); MCHC 34.6 g/dL (31.0-37.0); MCV 87.9 fL (80.0-100.0); Mean Platelet Volume 7.5; Monocytes # (A) 0.5 k/uL (0-1.0); Monocytes % (A) 4 %; Neutrophils # (A) 9.9 k/uL (1.3-7.7); Neutrophils % (A) 76 %; Platelet Count 244 k/uL (150-450); RBC 5.26 m/uL (4.30-5.90); RDW 12.6 % (11.5-15.5)
[2022-01-10] MEDS ORDERED: ASPIRIN 325 MG TAB PO ONE (07:00)
[2022-01-10] MEDS ORDERED: LIDOCAINE 1% INJ 10MG/ML (20 ML MDV) ONE ×2 (07:20→07:52)
[2022-01-10 07:25] LABS: African American GFR (CKD) >90 (>60 ml/min/1.73 sqM); Anion Gap 8 mmol/L; Blood Urea Nitrogen 25 mg/dL (9-20); Calcium 9.2 mg/dL (8.4-10.2); Carbon Dioxide 23 mmol/L (22-30); Chloride 107 mmol/L (98-107); Glucose 132 mg/dL (74-99); Non-African American GFR(CKD) 88 (>60 ml/min/1.73 sqM); Potassium 4.5 mmol/L (3.5-5.1); Sodium 138 mmol/L (137-145)
[2022-01-10] MEDS ORDERED: fentaNYL (PF) 50 MCG/ML 2 ML AMP ONE (07:40)
[2022-01-10] MEDS ORDERED: HEPARIN SODIUM 1,000 UN/ML (10ML VL) ONE (07:40)
[2022-01-10] MEDS ORDERED: VERAPAMIL 2.5 MG/ML 2 ML AMP ONE (07:40)
[2022-01-10] MEDS ORDERED: CLOPIDOGREL 75 MG TAB ONE (07:44)
[2022-01-10] MEDS ORDERED: MIDAZOLAM 2 MG/2 ML VIAL IV ONE (07:45)
[2022-01-10] MEDS ORDERED: fentaNYL (PF) 50 MCG/ML 2 ML AMP IV ONE (07:45)
[2022-01-10] MEDS ORDERED: LIDOCAINE 1% INJ 10MG/ML (20 ML MDV) SQ ONE (07:49)
[2022-01-10] MEDS ORDERED: VERAPAMIL SYRINGE (5 MG/10 ML) INTRAARTER ONE (07:50)
[2022-01-10] MEDS ORDERED: CLOPIDOGREL 75 MG TAB PO ONE (07:51)
[2022-01-10] MEDS ORDERED: HEPARIN SODIUM 1,000 UN/ML (10ML VL) IV ONE (07:54)
[2022-01-10] MEDS ORDERED: IOPAMIDOL-370 125ML BTL INJ ONE ×2 (08:27)
[2022-01-10] MEDS ORDERED: RX INFO: IV CONTRAST WAS GIVEN 1 EACH MISC MISCELLANE PRN (08:55)
[2022-01-10] MEDS ORDERED: MAG HYDROX/AL HYDROX/SIMETH 30 ML CUP PO PRN (08:55)
[2022-01-10] MEDS ORDERED: ZOLPIDEM 5 MG TAB PO PRN (08:55)
[2022-01-10] MEDS ORDERED: ATROPINE SULFATE 0.1 MG/ML 10ML SYRINGE IV PRN (08:55)
--- NOTE | 2022-01-10 08:55 | P.PRCINT ---
Percutaneous Coronary Int. - Percutaneous Coronary Intervention Percutaneous Coronary Intervention: PROCEDURES PERFORMED: Bilateral coronary angiography, [employer]ACLE [employer] DEVELOPER PCI proximal LAD by antegrade approach with 3.5 x 38mm Xience DUGLAS, post dilated with a 3.75 NC balloon INDICATION: Abnormal stress test, chest pain, ischemic cardiomyopathy HISTORY: Patient is a pleasant 66-year-old male with history of ischemic cardiomyopathy with stress test showing anterior septal infarct however some reversibility. He has been having chest pain off and on occasionally with exertion. Diagnostic heart catheterization showed ORACLE [employer] DEVELOPER of the proximal LAD with what appeared to be a short 15 mm segment. Given cardiomyopathy and symptoms [employer]LE [employer] DEVELOPER PCI was recommended. CONSENT:I have discussed the risks, benefits and alternative therapies for the above-mentioned procedure and for both sedation/analgesia as well as necessary blood product administration, if indicated, as they pertain to this patient. The patient has indicated understanding and acceptance of the risks and procedures discussed. PROCEDURE: After the risks, benefits and alternatives of the above mentioned procedure explained in detail with the patient, informed consent was obtained. Patient was taken to the catheterization lab and prepped and draped in usual fashion. 1% lidocaine was used to anesthetize the right radial artery. A 6- Telugu sheath was placed in the right radial artery using modified Seldinger technique. Using ultrasound guidance and micropuncture technique a 8-Telugu sheath was placed in the right femoral artery. A 6-Telugu FR4 guide was used to engage the RCA and a 6-Telugu CLS 3.0 guide was used to engage the left main. Dual injections were performed which showed short ORACLE [employer] DEVELOPER segment of approximately 15 mm. Heparin was given to maintain ACT greater than 250. Using a Corsair microcatheter and a 0.014 whisper wire the ORACLE [employer] DEVELOPER segment was processed in antegrade fashion. The microcatheter was advanced and small contrast injection confirmed intraluminal position. The proximal LAD was predilated with a 2.0 x 12 mm balloon. Next a 3.5 x 38 mm Xience DUGLAS was advanced and deployed in the proximal LAD. The proximal portion of the stent was postdilated with a 3.75 x 20 mm noncompliant balloon. The wire was pulled and final angiograms were performed. Per intervention there was KOBI 0 flow and 100% stenosis and post intervention there was KOBI 3 flow and 0% stenosis. A right femoral angiogram showed adequate anatomy for closure and an 8-Telugu Angio-Seal was placed with hemostasis achieved. The right radial sheath was removed and a TR band was placed with hemostasis achieved. The patient tolerated the procedure well. Patient was transported back to the post catheterization holding area in stable condition. Conscious Sedation: Patient was monitored under the direct supervision of vision of myself for conscious sedation using Versed and fentanyl for a total duration of 48 minutes HEMODYNAMICS: SELECTIVE CORONARY ARTERIOGRAPHY: LEFT MAIN: The left main is a large caliber vessel which bifurcates into the LAD and circumflex. There is no significant stenosis. LEFT ANTERIOR DESCENDING CORONARY ARTERY: LAD is a large caliber vessel which wraps around to the apex. There is 100% proximal LAD stenosis and otherwise mi ld luminal irregularities. LEFT CIRCUMFLEX CORONARY ARTERY: Left circumflex is a moderate caliber vessel with mild luminal irregularities. RIGHT CORONARY ARTERY: The right coronary artery is a large caliber vessel which gives off a PDA and PLV branch and is the dominant vessel. There are mild luminal irregularities. FINAL IMPRESSION: 1. CAD as described above with ORACLE SQL DEVELOPER of the proximal LAD 2. Successful PCI proximal LAD [employer]ACLE [employer] DEVELOPER with a 3.5 x 38mm Xience DUGLAS, post dilated with a 3.75 NC balloon PLAN: 1. Aggressive risk factor modification per most recent ACC/AHA guidelines. 2. Continue dual antiplatelets with aspirin and Plavix for 12 months.
[2022-01-10] MEDS ORDERED: FLUTICASONE 50MCG/SPRAY NASAL 16GM EA NOSTRIL PRN (08:57)
[2022-01-10] MEDS ORDERED: PREGABALIN 100 MG CAP PO PRN (08:57)
[2022-01-10] MEDS ORDERED: SODIUM CHLORIDE 0.9% 1,000 ML in EMPTY BAG 1 BAG IV SCH (09:00)
[2022-01-10] MEDS: ASPIRIN 81 MG PO SCH (09:18)
[2022-01-10] MEDS: ISOSORBIDE MONONITRATE ER 30 MG TAB.ER.24H PO SCH (10:00)
[2022-01-10] MEDS: METOPROLOL SUCCINATE (ER) 25 MG TAB.ER.24H PO SCH (10:01)
[2022-01-10] MEDS: lisinopriL 5 MG TAB PO SCH (10:01)
[2022-01-10 11:24] VITALS: BMI 32.1
[2022-01-10] MEDS: ATORVASTATIN 40 MG TAB PO SCH (19:46)
[2022-01-11] MEDS: ASPIRIN 81 MG PO SCH (09:57)
[2022-01-11] MEDS: METOPROLOL SUCCINATE (ER) 25 MG TAB.ER.24H PO SCH (09:58)
[2022-01-11] MEDS: ISOSORBIDE MONONITRATE ER 30 MG TAB.ER.24H PO SCH (09:58)
[2022-01-11] MEDS: CLOPIDOGREL 75 MG TAB PO SCH (09:58)
[2022-01-11] MEDS: lisinopriL 5 MG TAB PO SCH (09:58)
[2022-01-11] MEDS ORDERED: ACETAMINOPHEN TAB 325 MG TAB PO PRN (12:50)
--- NOTE | 2022-01-11 14:48 | P.PN ---
Subjective This is a 66-year-old male with a past medical history of dyslipidemia, prior history of head trauma status post surgery, chronic musculoskeletal pain strong family history of coronary artery disease. He follows in the office with Dr. Duke. Patient was admitted on 01/10/2022 for cardiac catheterization. Patient underwent a Lexiscan stress test in the office which revealed ischemic cardiomyopathy with moderate to severe LV dysfunction. Cardiac catheterization was recommended. Patient underwent cardiac catheterization which revealed 100% proximal LAD stenosis, patient underwent successful PCI of the proximal LAD on 01/10/2022. Patient seen and examined at bedside this morning, no acute distress. He continues to have some midsternal 2/10 chest pain, non-radiating, non exertional. Also having some dizziness. Vital signs are stable. Laboratory data reviewed, serum creatinines 1.07. GENERAL: Well-appearing, well-nourished and in no acute distress. NECK: Supple without JVD or thyromegaly. LUNGS: Breath sounds clear to auscultation bilaterally. Respiration equal and unlabored. No wheezes, rales or rhonchi. HEART: Regular rate and rhythm without murmurs, rubs or gallops. S1 and S2 heard. EXTREMITIES: Normal range of motion, no edema. No clubbing or cyanosis. Peripheral pulses intact. SKIN: Right groin site, clean, dry, mild discomfort with palpation, 2+ peripheral pulses, no hematoma ASSESSMENT Coronary artery disease status post PCI to proximal LAD Dyslipidemia Family history of coronary artery disease Dizziness PLAN We will continue to monitor patient for additional 24 hours. Continue dual antiplatelet therapy with aspirin and Plavix Continue statin, Imdur, lisinopril and metoprolol succinate Further recommendations based on clinical course, hopefully discharge in 24 hours Nurse Practitioner note has been reviewed, I agree with a documented findings and plan of care. Patient was seen and examined. Objective - Vital Signs Vital signs: Vital Signs Temp 98.1 F 01/11/22 08:00 Pulse 67 01/11/22 08:00 Resp 17 01/11/22 08:00 BP 144/85 01/11/22 08:00 Pulse Ox 96 01/11/22 08:00 Intake & Output 01/10/22 01/11/22 01/11/22 18:59 06:59 18:59 Intake Total 1183 118 Output Total 1525 Balance -342 118 Weight 91.8 kg Intake: IV 300 Intake, IV Titration 525 Amount Sodium Chloride 0.9% 1, 525 000 ml In Empty Bag 1 bag @ 1 ML/KG/HR 89.811 mls/ hr IV .[id number] [facility] Rx#: [id number] Oral 358 118 Output: Urine 1525 Other: Voiding Method Toilet Toilet Urinal Urinal - Labs CBC & Chem 7: 01/10/22 06:20 01/11/22 09:45
[2022-01-11] MEDS: ATORVASTATIN 40 MG TAB PO SCH (20:07)
[2022-01-12 04:00] VITALS: RESP 16
[2022-01-12] MEDS: lisinopriL 5 MG TAB PO SCH (09:11)
[2022-01-12] MEDS: ASPIRIN 81 MG PO SCH (09:12)
[2022-01-12] MEDS: ISOSORBIDE MONONITRATE ER 30 MG TAB.ER.24H PO SCH (09:12)
[2022-01-12] MEDS: CLOPIDOGREL 75 MG TAB PO SCH (09:12)
[2022-01-12] MEDS: METOPROLOL SUCCINATE (ER) 25 MG TAB.ER.24H PO SCH (09:12)
[2022-01-12 13:15] VITALS: BP 101/48; PULSE 70; TEMP 98
--- NOTE | 2022-01-12 15:05 | P.DS ---
Providers Date of admission: 01/11/22 15:29 Attending physician: Margarito Montejo DO Consults: 01/10/22 08:56 Consult Physician Routine Consulting Provider: [facility] Consult Reason/Comments: Post Interventional patient Do you want consulting provider notified?: Already Contacted Primary care physician: Aston Mendoza MD Hospital Course: Patient is pleasant 66-year-old male with history of ischemic cardiomyopathy with CT of the LAD with prior nuclear scan showing viable septum with some reversibility and therefore patient underwent successful MOLD BLOWER PCI 01/10/2022 from a femoral and radial approach. He was having atypical chest pain yesterday and therefore continue to monitor however no significant ischemic changes and chest pain improved. He has been feeling much better today on aspirin and Plavix and denies any heart failure type symptoms. He is stable for discharge home with outpatient follow-up in 1 week. Plan - Discharge Summary Discharge Rx Participant: No New Discharge Prescriptions: New Nitroglycerin Sl Tabs [Nitrostat] 0.4 mg SUBLINGUAL Q5M PRN #25 tab PRN Reason: Chest Pain Clopidogrel [Plavix] 75 mg PO DAILY 30 Days #30 tab Continue Atorvastatin [Lipitor] 40 mg PO HS Aspirin EC [Ecotrin Low Dose] 324 mg PO BID Pregabalin [Lyrica] 200 mg PO TID PRN PRN Reason: Pain Isosorbide Mononitrate ER [Imdur] 30 mg PO DAILY lisinopriL [Zestril] 5 mg PO DAILY Furosemide [Lasix] 40 mg PO DAILY 30 Days #30 tablet Fluticasone Nasal [place] [Flonase Nasal [place]] 2 spray EA NOSTRIL DAILY PRN PRN Reason: ALLERGY SYMPTOMS, SINUS Metoprolol Succinate (ER) [Toprol XL] 25 mg PO DAILY Discharge Medication List Atorvastatin [Lipitor] 40 mg PO HS 06/28/21 [History] Aspirin EC [Ecotrin Low Dose] 324 mg PO BID 11/27/21 [History] Pregabalin [Lyrica] 200 mg PO TID PRN 11/27/21 [History] lisinopriL [Zestril] 5 mg PO DAILY 11/27/21 [History] Furosemide [Lasix] 40 mg PO DAILY 30 Days #30 tablet 11/30/21 [Rx] Isosorbide Mononitrate ER [Imdur] 30 mg PO DAILY 12/04/21 [History] Fluticasone Nasal [place] [Flonase Nasal [place]] 2 spray EA NOSTRIL DAILY PRN 01/08/22 [History] Metoprolol Succinate (ER) [Toprol XL] 25 mg PO DAILY 01/08/22 [History] Clopidogrel [Plavix] 75 mg PO DAILY 30 Days #30 tab 01/11/22 [Rx] Nitroglycerin Sl Tabs [Nitrostat] 0.4 mg SUBLINGUAL Q5M PRN #25 tab 01/11/22 [Rx] Follow up Appointment(s)/Referral(s): Brando Duke MD [STAFF PHYSICIAN] - 1 Week
== END 2022-01-12 16:03 | disposition home or self-care (01) ==
LOC: CATHCVL 05:40 → 3SCARD 08:28 → CATHCVL 01-11 14:05 → 3SCARD 01-11 15:29
PROVIDERS: ADMIT Internal Medicine; ATTEND Internal Medicine
DX: I25.10 Atherosclerotic heart disease of native coronary artery without angina pectoris (principal); I25.5 Ischemic cardiomyopathy; R07.2 Precordial pain; M79.602 Pain in left arm; G89.29 Other chronic pain; M79.18 Myalgia, other site; R42 Dizziness and giddiness; R06.02 Shortness of breath; R94.31 Abnormal electrocardiogram [ECG] [EKG]; E78.5 Hyperlipidemia, unspecified; Z87.828 Personal history of other (healed) physical injury and trauma; Z86.718 Personal history of other venous thrombosis and embolism; Z79.899 Other long term (current) drug therapy; Z88.8 Allergy status to other drugs, medicaments and biological substances; Z82.49 Family history of ischemic heart disease and other diseases of the circulatory system; Z20.822 Contact with and (suspected) exposure to COVID-19
CPT/HCPCS: 80048; 82565; 85025; 87635; 92928; G0378 ×2; C9600; C1760; C1769 ×4; C1887 ×3; C1894 ×2; C1725 ×3; C1874; J2250; J2001; J3010; J1644; Q9967

== ENCOUNTER → 2022-10-21 | Outpatient (CLI) | payer MEDICARE ==
[2022-10-21 16:32] LABS: ALT 21 U/L (10-49); AST 21 U/L (14-35); LDL Cholesterol,Calculated 77.5 mg/dL (0.0-131.0)
== END | disposition home or self-care (01) ==
LOC: LABWHC1 10-16 10:19
PROVIDERS: ATTEND Internal Medicine Cardiovascular Disease
DX: E78.2 Mixed hyperlipidemia (principal)
CPT/HCPCS: 36415; 80061; 84450; 84460

== ENCOUNTER 2023-02-07 17:00 | Emergency (ER) | payer MEDICARE, OTHER ==
[2023-02-07 17:22] VITALS: TEMP 98.2
[2023-02-07] MEDS ORDERED: FLUTICASONE 50MCG/SPRAY NASAL 16GM EA NOSTRIL STA (17:54)
[2023-02-07] MEDS ORDERED: ALBUTEROL HFA INHALER INHALATION STA (17:55)
[2023-02-07 18:26] LABS: Basophils # (A) 0.1 k/uL (0-0.2); Basophils % (A) 1 %; Eosinophils # (A) 0.2 k/uL (0-0.7); Eosinophils % (A) 2 %; HCT 44.9 % (39.0-53.0); HGB 15.4 gm/dL (13.0-17.5); Lymphocytes # (A) 3.4 k/uL (1.0-4.8); Lymphocytes % (A) 34 %; MCH 29.5 pg (25.0-35.0); MCHC 34.4 g/dL (31.0-37.0); MCV 85.9 fL (80.0-100.0); Mean Platelet Volume 7.3; Monocytes # (A) 0.6 k/uL (0-1.0); Monocytes % (A) 6 %; Neutrophils # (A) 5.7 k/uL (1.3-7.7); Neutrophils % (A) 56 %; Platelet Count 218 k/uL (150-450); RBC 5.23 m/uL (4.30-5.90); RDW 12.9 % (11.5-15.5); WBC 10.1 k/uL (3.8-10.6)
[2023-02-07 18:49] LABS: Appearance,Urine Clear (Clear); Bilirubin,Urine Negative (Negative); Blood,Urine Negative (Negative); Color,Urine Yellow; Glucose,Urine (UA) Negative (Negative); Ketones,Urine Negative (Negative); Leukocyte Esterase,Urine Negative (Negative); Nitrite,Urine Negative (Negative); PH, Urine 5.5 (5.0-8.0); Protein,Urine Negative (Negative); Specific Gravity,Urine 1.028 (1.001-1.035); Urobilinogen,Urine <2.0 mg/dL (<2.0)
[2023-02-07 18:52] LABS: Albumin 4.1 g/dL (3.5-5.0); Calcium 9.2 mg/dL (8.4-10.2); Potassium 4.5 mmol/L (3.5-5.1); Total Bilirubin 1.2 mg/dL (0.2-1.3); Total Protein 6.8 g/dL (6.3-8.2)
--- NOTE | 2023-02-07 18:55 | XR ---
EXAMINATION TYPE: XR chest 2V DATE OF EXAM: 02/07/2023 6:35 PM COMPARISON: Chest radiographs from 12/12/2021 TECHNIQUE: XR chest 2V Frontal and lateral views of the chest. CLINICAL INDICATION:Male, 67 years old with history of productive cough; FINDINGS: Lungs/Pleura: There is no evidence of pleural effusion, focal consolidation, or pneumothorax. Pulmonary vascularity: Unremarkable. Heart/mediastinum: Cardiomediastinal silhouette is unremarkable. Musculoskeletal: No acute osseous pathology. IMPRESSION: No acute cardiopulmonary disease/process.
--- NOTE | 2023-02-07 19:00 | ED ---
URI HPI - General Chief Complaint: Upper Respiratory Infection Stated Complaint: Chest Congested/Cough Time Seen by Provider: 02/07/23 17:44 Source: patient Mode of arrival: ambulatory Limitations: no limitations - History of Present Illness Initial Comments: Patient is a 67-year-old male who presents to the emergency department for cough. Patient has had productive cough for 3 weeks. He did have the flu 3 weeks ago but the cough never improved. Patient has continuous white phlegm. He denies fever, chills, chest pain, shortness of breath. No nausea or vomiting. He recently finished a Z-Ken. He denies history of asthma and COPD. Denies history of heart failure. He is a nonsmoker. - Related Data Home Medications Medication Instructions Recorded Confirmed Atorvastatin [Lipitor] 40 mg PO HS 06/28/21 02/07/23 Aspirin EC [Ecotrin Low Dose] 81 mg PO DAILY 11/27/21 02/07/23 lisinopriL [Zestril] 5 mg PO DAILY 11/27/21 02/07/23 Metoprolol Succinate (ER) [Toprol 50 mg PO DAILY 01/08/22 02/07/23 XL] Nitroglycerin Sl Tabs [Nitrostat] 0.4 mg SUBLINGUAL Q5M PRN 03/11/22 02/07/23 Isosorbide Mononitrate ER [Imdur] 60 mg PO DAILY 02/07/23 02/07/23 Previous Rx's Medication Instructions Recorded Clopidogrel [Plavix] 75 mg PO DAILY 30 Days #30 tab 01/11/22 Albuterol Inhaler [Ventolin Hfa 2 puff INHALATION TID #8 gm 02/07/23 Inhaler] Benzonatate [Tessalon Perles] 100 mg PO TID PRN #15 capsule 02/07/23 predniSONE 50 mg PO DAILY #5 tab 02/07/23 Allergies Allergy/AdvReac Type Severity Reaction Status Date / Time Iodinated Contrast Media AdvReac Nausea & Verified 02/07/23 18:45 [Iodinated Contrast- Oral Vomiting and IV Dye] Review of Systems ROS Statement: Those systems with pertinent positive or pertinent negative responses have been documented in the HPI. ROS Other: All systems not noted in ROS Statement are negative. 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 Hx Pneumonia 2017. Hx migraines, Had a cyst on the back of his head from injury with some nerve damage. Has stomach pain. CONSTIPATION, MIGRAINE HEADACHE, back pain, Covid-12/2021 Last Myocardial Infarction Date:: ?01/2021 History of Any Multi-Drug Resistant Organisms: None Reported Past Surgical History: Heart Catheterization, Heart Catheterization With Stent Additional Past Surgical History / Comment(s): Large cyst removed from posterior head, PAIN CLINIC PROCEDURES. Past Anesthesia/Blood Transfusion Reactions: No Reported Reaction Date of Last Stent Placement:: 12/2021 Past Psychological History: No Psychological Hx Reported Smoking Status: Never smoker Past Alcohol Use History: None Reported Past Drug Use History: None Reported - Past Family History Mother Family Medical History: Deep Vein Thrombosis (DVT) Sister(s) Additional Family Medical History / Comment(s): 1 sister aortic aneurysm, cerebral aneurysm Brother(s) Family Medical History: Cancer Additional Family Medical History / Comment(s): cerebral aneurysm Father Family Medical History: Myocardial Infarction ([place]) Additional Family Medical History / Comment(s): Father from [place] at 64 years old. General Exam Limitations: no limitations General appearance: alert, in no apparent distress Head exam: Present: atraumatic, normocephalic, normal inspection ENT exam: Present: normal oropharynx Neck exam: Present: normal inspection. Absent: tenderness, meningismus, lymph adenopathy Respiratory exam: Present: normal lung sounds bilaterally. Absent: respiratory distress, wheezes, rales, rhonchi, stridor Cardiovascular Exam: Present: regular rate, normal rhythm, normal heart sounds. Absent: systolic murmur, diastolic murmur, rubs, gallop, clicks GI/Abdominal exam: Present: soft, normal bowel sounds. Absent: distended, tenderness, guarding, rebound, rigid Neurological exam: Present: alert, oriented X3, CN II-XII intact Psychiatric exam: Present: normal affect, normal mood Course Vital Signs 02/07/23 02/07/23 02/07/23 17:18 18:32 21:00 Temperature 98.2 F Pulse Rate 109 H 88 Respiratory 22 22 20 Rate Blood Pressure 121/69 127/80 O2 Sat by Pulse 95 95 Oximetry Medical Decision Making - Medical Decision Making EKG taken at 17:25, interpreted very Sinus rhythm, no ST segment or T-wave abnormalities Ventricular rate 93, AL interval 136, QRS duration 89, QTc 399 Was pt. sent in by a medical professional or institution (LACEY Purcell, LITHOGRAPH DESIGNER, urgent care, hospital, or senior living...) When possible be specific @ -[No] Did you speak to anyone other than the patient for history (EMS, parent, family, police, friend...)? What history was obtained from this source @ -[No] Did you review nursing and triage notes (agree or disagree)? Why? @ -[I reviewed and agree with nursing and triage notes] Were old charts reviewed (outside hosp., previous admission, EMS record, old EKG, old radiological studies, urgent care reports/EKG's, senior living records)? Report findings @ -[No old charts were reviewed] Differential Diagnosis (chest pain, altered mental status, abdominal pain women, abdominal pain men, vaginal bleeding, weakness, fever, dyspnea, syncope, headache, dizziness, GI bleed, back pain, seizure, CVA, palpatations, mental health)? @ -URI, sinusitus,strep pharyngitis, viral pharyngitis, pneumonia, bronchitis-this list is not meant to be all-inclusive EKG interpreted by me (3pts min.). @ -[As above] X-rays interpreted by me (1pt min.). @ -Chest x-ray negative for acute process CT interpreted by me (1pt min.). @ -[None done] U/S interpreted by me (1pt. min.). @ -[None done] What testing was considered but not performed or refused? (CT, X-rays, U/S, labs)? Why? @ -[None] What meds were considered but not given or refused? Why? @ -[None] Did you discuss the management of the patient with other professionals (professionals i.e. LACEY Purcell, LITHOGRAPH DESIGNER, lab, RT, psych nurse, licensed social worker, facilities maintenance worker, teacher, immigration officer, lining caser)? Give summary @ -[No] Was smoking cessation discussed for >3mins.? @ -[No] Was critical care preformed (if so, how long)? @ -[No] Were there social determinants of health that impacted care today? How? (Homelessness, low income, unemployed, alcoholism, drug addiction, transportation, low edu. Level, literacy, decrease access to med. care, detention, rehab)? @ -[No] Was there de-escalation of care discussed even if they declined (Discuss DNR or withdrawal of care, Hospice)? DNR status @ -[No] What co-morbidities impacted this encounter? (DM, HTN, Smoking, COPD, CAD, Cancer, CVA, ARF, Chemo, Hep., AIDS, mental health diagnosis, sleep apnea, mo rbid obesity)? @ -[None] Was patient admitted / discharged? Hospital course, mention meds given and route, prescriptions, significant lab abnormalities, going to OR and other pertinent info. @ - patient presenting with persistent cough. I did hear patient consistently coughing during his visit. He continued to cough up white phlegm. He is afebrile. No abnormal lung sounds. No hypoxia. Chest x-ray negative for acute process. COVID-19, RSV, influenza not detected. Results discussed with patient. Patient will be placed on Steroid prescription, albuterol inhaler, Tessalon Perles. He will follow-up with primary care provider. Undiagnosed new problem with uncertain prognosis? @ -[No] Drug Therapy requiring intensive monitoring for toxicity (Heparin, Nitro, Insulin, Cardizem)? @ -[No] Were any procedures done? @ -[No] Diagnosis/symptom? @ -Cough Acute, or Chronic, or Acute on Chronic? @ -Acute Uncomplicated (without systemic symptoms) or Complicated (systemic symptoms)? @ -[default] Side effects of treatment? @ -[No] Exacerbation, Progression, or Severe Exacerbation? @ -[No] Poses a threat to life or bodily function? How? (Chest pain, [place], [place], pneumonia, PE, COPD, DKA, ARF, appy, cholecystitis, CVA, Diverticulitis, Homicidal, Suicidal, threat to staff... and all critical care pts) @ -[No] Dr. Walden is my attending - Lab Data Result diagrams: 02/07/23 18:17 02/07/23 18:17 Lab Results 02/07/23 02/07/23 02/07/23 Range/Units 18:10 18:17 18:17 WBC 10.1 (3.8-10.6) k/uL RBC 5.23 (4.30-5.90) m/uL Hgb 15.4 (13.0-17.5) gm/dL Hct 44.9 (39.0-53.0) % MCV 85.9 (80.0-100.0) fL MCH 29.5 (25.0-35.0) pg MCHC 34.4 (31.0-37.0) g/dL RDW 12.9 (11.5-15.5) % Plt Count 218 (150-450) k/uL MPV 7.3 Neutrophils % 56 % Lymphocytes % 34 % Monocytes % 6 % Eosinophils % 2 % Basophils % 1 % Neutrophils # 5.7 (1.3-7.7) k/uL Lymphocytes # 3.4 (1.0-4.8) k/uL Monocytes # 0.6 (0-1.0) k/uL Eosinophils # 0.2 (0-0.7) k/uL Basophils # 0.1 (0-0.2) k/uL APTT 24.0 (22.0-30.0) sec Sodium (137-145) mmol/L Potassium (3.5-5.1) mmol/L Chloride (98-107) mmol/L Carbon Dioxide (22-30) mmol/L Anion Gap mmol/L BUN (9-20) mg/dL Creatinine (0.66-1.25) mg/dL Est GFR (CKD-EPI)AfAm (>60 ml/min/1.73 sqM) Est GFR (CKD-EPI)NonAf (>60 ml/min/1.73 sqM) Glucose (74-99) mg/dL Calcium (8.4-10.2) mg/dL Total Bilirubin (0.2-1.3) mg/dL AST (17-59) U/L ALT (4-49) U/L Alkaline Phosphatase (38-126) U/L NT-Pro-B Natriuret Pep pg/mL Total Protein (6.3-8.2) g/dL Albumin (3.5-5.0) g/dL Urine Color Urine Appearance (Clear) Urine pH (5.0-8.0) Ur Specific [place] (1.001-1.035) Urine Protein (Negative) Urine Glucose (UA) (Negative) Urine Ketones (Negative) Urine Blood (Negative) Urine Nitrite (Negative) Urine Bilirubin (Negative) Urine Urobilinogen (<2.0) mg/dL Ur Leukocyte Esterase (Negative) Influenza Type A (PCR) Not Detected (Not Detectd) Influenza Type B (PCR) Not Detected (Not Detectd) RSV (PCR) Not Detected (Not Detectd) SARS-CoV-2 (PCR) Not Detected (Not Detectd) 02/07/23 02/07/23 02/07/23 Range/Units 18:17 18:17 18:29 WBC (3.8-10.6) k/uL RBC (4.30-5.90) m/uL Hgb (13.0-17.5) gm/dL Hct (39.0-53.0) % MCV (80.0-100.0) fL MCH (25.0-35.0) pg MCHC (31.0-37.0) g/dL RDW (11.5-15.5) % Plt Count (150-450) k/uL MPV Neutrophils % % Lymphocytes % % Monocytes % % Eosinophils % % Basophils % % Neutrophils # (1.3-7.7) k/uL Lymphocytes # (1.0-4.8) k/uL Monocytes # (0-1.0) k/uL Eosinophils # (0-0.7) k/uL Basophils # (0-0.2) k/uL APTT (22.0-30.0) sec Sodium 138 (137-145) mmol/L Potassium 4.5 (3.5-5.1) mmol/L Chloride 106 (98-107) mmol/L Carbon Dioxide 24 (22-30) mmol/L Anion Gap 8 mmol/L BUN 33 H (9-20) mg/dL Creatinine 1.29 H (0.66-1.25) mg/dL Est GFR (CKD-EPI)AfAm 67 (>60 ml/min/1.73 sqM) Est GFR (CKD-EPI)NonAf 58 (>60 ml/min/1.73 sqM) Glucose 96 (74-99) mg/dL Calcium 9.2 (8.4-10.2) mg/dL Total Bilirubin 1.2 (0.2-1.3) mg/dL AST 27 (17-59) U/L ALT 24 (4-49) U/L Alkaline Phosphatase 59 (38-126) U/L NT-Pro-B Natriuret Pep 83 pg/mL Total Protein 6.8 (6.3-8.2) g/dL Albumin 4.1 (3.5-5.0) g/dL Urine Color Yellow Urine Appearance Clear (Clear) Urine pH 5.5 (5.0-8.0) Ur Specific [place] 1.028 (1.001-1.035) Urine Protein Negative (Negative) Urine Glucose (UA) Negative (Negative) Urine Ketones Negative (Negative) Urine Blood Negative (Negative) Urine Nitrite Negative (Negative) Urine Bilirubin Negative (Negative) Urine Urobilinogen <2.0 (<2.0) mg/dL Ur Leukocyte Esterase Negative (Negative) Influenza Type A (PCR) (Not Detectd) Influenza Type B (PCR) (Not Detectd) RSV (PCR) (Not Detectd) SARS-CoV-2 (PCR) (Not Detectd) Disposition Clinical Impression: Cough Disposition: HOME SELF-CARE Condition: Good Instructions (If sedation given, give patient instructions): Upper Respiratory Infection (ED) Additional Instructions: Take medication as directed. Follow-up with primary care provider in one to 2 days. Return to emergency department if you experience new concerning, or worsening symptoms Prescriptions: predniSONE 50 mg PO DAILY #5 tab Benzonatate [Tessalon Perles] 100 mg PO TID PRN #15 capsule PRN Reason: Cough Albuterol Inhaler [Ventolin Hfa Inhaler] 2 puff INHALATION TID #8 gm Is patient prescribed a controlled substance at d/c from ED?: No Referrals: None,Stated [Primary Care Provider] - 1-2 days
[2023-02-07] MEDS ORDERED: SODIUM CHLORIDE 0.9% 1,000 ML IV STA (20:27)
[2023-02-07] MEDS ORDERED: methylPREDNISolone SOD SUCCI 125 MG/2 ML VIAL IV STA (20:48)
[2023-02-07 21:18] VITALS: BP 127/80; PULSE 88; RESP 20
== END 2023-02-07 22:12 | disposition home or self-care (01) ==
LOC: EC 17:00
DX: R05.9 Cough, unspecified (principal); I25.10 Atherosclerotic heart disease of native coronary artery without angina pectoris; I25.2 Old myocardial infarction; E78.5 Hyperlipidemia, unspecified; M19.90 Unspecified osteoarthritis, unspecified site; Z79.82 Long term (current) use of aspirin; Z79.899 Other long term (current) drug therapy; Z20.822 Contact with and (suspected) exposure to COVID-19; Z91.041 Radiographic dye allergy status
CPT/HCPCS: 36415; 93005; 83880; 80053; 85025; 85730; 81003; 87636; 71046; 99284; 96374; 96361; J2930

== ENCOUNTER → 2023-09-12 | Outpatient (CLI) | payer MEDICARE, OTHER ==
[2023-09-12 15:40] LABS: HCT 50.8 % (39.6-50.0); HGB 16.1 g/dL (13.0-17.0); MCH 27.9 pg (27.0-32.0); MCHC 31.7 g/dL (32.0-37.0); Mean Platelet Volume 10.1 FL (9.5-12.2); NRBC Per 100 WBC 0 X 10*3/uL (0.00-0.01); Platelet Count 238 X 10*3/uL (140-440); RBC 5.77 X 10*6/uL (4.40-5.60); WBC 7.38 X 10*3/uL (4.50-10.00)
[2023-09-12 15:51] LABS: Chol/HDL Ratio 4.26 Ratio
[2023-09-12 15:52] LABS: ALT 24 U/L (10-49); AST 26 U/L (14-35); BUN/Creat Ratio 23.82 Ratio (12.00-20.00); Blood Urea Nitrogen 26.2 mg/dL (9.0-27.0); Carbon Dioxide 27.1 mmol/L (21.6-31.8); Chloride 105 mmol/L (96-109); Glucose 107 mg/dL (70-110); LDL Cholesterol,Calculated 100.5 mg/dL (0.0-131.0); Potassium 5.7 mmol/L (3.5-5.5); Sodium 142 mmol/L (135-145)
== END | disposition home or self-care (01) ==
LOC: LABWHC1 09:12
PROVIDERS: ATTEND Internal Medicine Cardiovascular Disease
DX: E78.2 Mixed hyperlipidemia (principal); R07.2 Precordial pain
CPT/HCPCS: 36415; 80048; 80061; 84450; 84460; 85027

== ENCOUNTER → 2023-09-15 | Day surgery (SDC) | payer MEDICARE, OTHER ==
[~2023-09-15] MED LIST changes: +ASPIRIN 325 MG TAB PO STA; +ASPIRIN 81 MG ONE; +HEPARIN SODIUM 1,000 UN/ML (10ML VL) IV ONE; +HEPARIN SODIUM,PORCINE (1 ML) 2,500 UNIT in SODIUM CHLORIDE 0.9% 250 ML IRRIGATION PRN; -HEPARIN SODIUM,PORCINE 2,500 UNIT in SODIUM CHLORIDE 0.9% 250 ML IRRIGATION PRN; +IOPAMIDOL-370 100ML BTL INJ ONE; +LIDOCAINE 1% INJ 10MG/ML (5 ML VIAL-PF) SQ ONE; +MIDAZOLAM 2 MG/2 ML VIAL IVP ONE; +RX INFO: IV CONTRAST WAS GIVEN 1 EACH MISC MISCELLANE PRN; +SODIUM CHLORIDE 0.9% 1,000 ML IV SCH; +VERAPAMIL SYRINGE (5 MG/10 ML) INTRAARTER ONE; +fentaNYL (PF) 50 MCG/ML 2 ML AMP IVP ONE
[2023-09-15 06:31] LABS: Basophils % (A) 0 %; Eosinophils % (A) 0 %; HCT 44.1 % (39.0-53.0); HGB 14.8 gm/dL (13.0-17.5); Lymphocytes # (A) 1.4 k/uL (1.0-4.8); Lymphocytes % (A) 13 %; MCH 29.5 pg (25.0-35.0); MCHC 33.6 g/dL (31.0-37.0); MCV 87.9 fL (80.0-100.0); Mean Platelet Volume 7.5; Monocytes # (A) 0.4 k/uL (0-1.0); Monocytes % (A) 4 %; Neutrophils % (A) 82 %; Platelet Count 219 k/uL (150-450); RBC 5.02 m/uL (4.30-5.90); RDW 12.9 % (11.5-15.5)
[2023-09-15 06:50] LABS: African American GFR (CKD) >90 (>60 ml/min/1.73 sqM); Anion Gap 11 mmol/L; Blood Urea Nitrogen 27 mg/dL (9-20); Calcium 9.7 mg/dL (8.4-10.2); Carbon Dioxide 20 mmol/L (22-30); Chloride 109 mmol/L (98-107); Glucose 150 mg/dL (74-99); Non-African American GFR(CKD) 83 (>60 ml/min/1.73 sqM); Potassium 4.7 mmol/L (3.5-5.1); Sodium 140 mmol/L (137-145)
[2023-09-15 06:57] VITALS: TEMP 97.7
--- NOTE | 2023-09-15 08:55 | CC ---
CARDIAC CATHETERIZATION REPORT INDICATION: Unstable angina. PROCEDURE NOTE: After obtaining informed consent, left heart catheterization and coronary angiogram were performed using a size 4 right [place]idad catheter and 3.5 left [place] catheter. The patient tolerated the procedure well without any obvious immediate complications. The patient received moderate conscious sedation. Total sedation time was 20 minutes. Right radial artery access was obtained using Seldinger technique, 6-Irish sheath was placed. Catheters and wires were floated into the ascending aorta under fluoroscopic guidance. The patient received verapamil and heparin per protocol. FINDINGS: HEMODYNAMICS: Left ventricular end-diastolic pressure is 15 to 16 mm. There is no significant gradient across the aortic valve. LEFT VENTRICULOGRAM: Left ventriculogram is not performed. ANGIOGRAPHIC DATA: Right coronary artery is a large dominant vessel that shows mild nonobstructive disease involving the PLV branch. Left main coronary artery is a short vessel and is free of stenosis. Divides into left anterior descending coronary artery and circumflex coronary artery. Circumflex coronary artery and its branches are free of significant stenosis. LAD was previously stented, extending from proximal to midportion and the stent appears patent. CONCLUSIONS: Patent stent within the LAD. Mild nonobstructive disease involving right coronary artery. PLAN: I reviewed angiographic data with the patient and told him that his chest discomfort is probably noncardiac in origin and his management is going to be with continued medical therapy. MMODL / IJN: [id number] /
--- NOTE | 2023-09-15 09:01 | LTR ---
Dear Damir Chavarria is a 68-year-old gentleman with history of coronary artery disease status post prior angioplasty of LAD, who is to undergo prostate surgery for benign prostatic hypertrophy by you. He underwent a cardiac catheterization because of his presentation with symptoms suggestive of unstable angina and does not have significant obstructive CAD. He is an acceptable risk candidate for surgery under anesthesia. He can stop aspirin for a week prior to surgery and resume it postoperatively whenever it is feasible from surgical standpoint. MMCARMELITAL / IJN: [id number] / DOUG
[2023-09-15 19:37] VITALS: BP 166/79; PULSE 64; RESP 16
== END ==
LOC: CATHCVL 05:32
PROVIDERS: ATTEND Internal Medicine Cardiovascular Disease
DX: I25.10 Atherosclerotic heart disease of native coronary artery without angina pectoris (principal); I25.5 Ischemic cardiomyopathy; I10 Essential (primary) hypertension; J44.9 Chronic obstructive pulmonary disease, unspecified; E78.2 Mixed hyperlipidemia; Z82.49 Family history of ischemic heart disease and other diseases of the circulatory system; Z79.82 Long term (current) use of aspirin; Z79.899 Other long term (current) drug therapy
CPT/HCPCS: 93458; 80048; 85025; C1769; C1894; C1887; J2250; J2001; J3010; J1644; Q9967

== ENCOUNTER → 2023-11-27 | Outpatient (CLI) | payer MEDICARE ==
[2023-11-27 15:28] LABS: ALT 25 U/L (10-49); AST 24 U/L (14-35); Chol/HDL Ratio 4.62 Ratio; LDL Cholesterol,Calculated 101.5 mg/dL (0.0-131.0)
== END | disposition home or self-care (01) ==
LOC: LABWHC1 08:53
PROVIDERS: ATTEND Internal Medicine Cardiovascular Disease
DX: E78.2 Mixed hyperlipidemia (principal)
CPT/HCPCS: 36415; 80061; 84450; 84460

== ENCOUNTER 2024-03-31 09:24 | Emergency (ER) | payer MEDICARE ==
--- NOTE | 2024-03-31 10:00 | ED ---
Male Urogenital HPI - General Source: patient, RN notes reviewed Mode of arrival: ambulatory Limitations: no limitations <Karie Chacon - Last Filed: 03/31/24 09:57> - General Source: RN notes reviewed <Guera Alejandra - Last Filed: 03/31/24 19:43> - General Chief complaint: Recheck/Abnormal Lab/Rx Stated complaint: hemturia/post op Time Seen by Provider: 03/31/24 09:57 - History of Present Illness Initial comments: Quick Note: This is a 68-year-old male who presents to the emergency department for hematuria. States that he had prostate surgery 2 weeks ago and was told that some bleeding after surgery was normal. He was having a light bleeding, however yesterday his dog jumped on on the abdomen. Afterwards he developed severe pain and since then he has been bleeding dark red blood. Takes a baby aspirin but otherwise no blood thinners. (Karie Chacon) 68-year-old male presenting for hematuria. He had prostate surgery 2 weeks ago which consisted of lasering the prostate due to hypertrophy. He was told some b leeding after surgery is normal. He was having some light bleeding. Last night, he reports his dog jumped onto his abdomen. Afterwards, he developed severe pain in the pelvis and he has been bleeding dark red blood from his urethra. He also reports dysuria and urinary urgency. He takes daily baby aspirin however no blood thinners. Denies fever, vomiting. Denies testicular pain or swelling (Guera Alejandra) - Related Data Home Medications Medication Instructions Recorded Confirmed Atorvastatin [Lipitor] 40 mg PO HS 06/28/21 09/15/23 Aspirin EC [Ecotrin Low Dose] 81 mg PO DAILY 11/27/21 09/15/23 Metoprolol Succinate (ER) [Toprol 50 mg PO DAILY 01/08/22 09/15/23 XL] Nitroglycerin Sl Tabs [Nitrostat] 0.4 mg SUBLINGUAL Q5M PRN 03/11/22 09/15/23 Isosorbide Mononitrate ER [Imdur] 120 mg PO DAILY 02/07/23 09/15/23 Aspirin [Adult Low Dose Aspirin EC] 81 mg PO DAILY 09/15/23 09/15/23 Losartan [Cozaar] 25 mg PO DAILY 09/15/23 09/15/23 Tamsulosin [Flomax] 0.4 mg PO DAILY 09/15/23 09/15/23 Previous Rx's Medication Instructions Recorded Albuterol Inhaler [Ventolin Hfa 2 puff INHALATION TID #8 gm 02/07/23 Inhaler] Allergies Allergy/AdvReac Type Severity Reaction Status Date / Time Iodinated Contrast Media AdvReac Nausea & Verified 03/31/24 09:52 [Iodinated Contrast- Oral Vomiting and IV Dye] Review of Systems ROS Other: All systems not noted in ROS Statement are negative. <Karie Chacon - Last Filed: 03/31/24 09:57> ROS Other: All systems not noted in ROS Statement are negative. <Guera Alejandra - Last Filed: 03/31/24 19:43> ROS Statement: Those systems with pertinent positive or pertinent negative responses have been documented in the HPI. 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 Hx Pneumonia 2016. Hx migraines, Had a cyst on the back of his head from injury with some nerve damage. Has stomach pain. CONSTIPATION, MIGRAINE HEADACHE, back pain, Covid-12/2021 Last Myocardial Infarction Date:: ?01/2021 History of Any Multi-Drug Resistant Organisms: None Reported Past Surgical History: Heart Catheterization, Heart Catheterization With Stent Additional Past Surgical History / Comment(s): Large cyst removed from posterior head, PAIN CLINIC PROCEDURES. Past Anesthesia/Blood Transfusion Reactions: No Reported Reaction Date of Last Stent Placement:: 12/2021 Past Psychological History: No Psychological Hx Reported Smoking Status: Never smoker Past Alcohol Use History: None Reported Past Drug Use History: None Reported - Past Family History Mother Family Medical History: Deep Vein Thrombosis (DVT) Sister(s) Additional Family Medical History / Comment(s): 1 sister aortic aneurysm, cerebral aneurysm Brother(s) Family Medical History: Cancer Additional Family Medical History / Comment(s): cerebral aneurysm Father Family Medical History: Myocardial Infarction (NM) Additional Family Medical History / Comment(s): Father from [place] at 64 years old. <Karie Chacon - Last Filed: 03/31/24 09:57> General Exam Limitations: no limitations <Karie Chacon - Last Filed: 03/31/24 09:57> General appearance: alert, in no apparent distress Head exam: Present: atraumatic, normocephalic, normal inspection Eye exam: Present: normal appearance, PERRL, EOMI. Absent: scleral icterus, conjunctival injection, periorbital swelling ENT exam: Present: normal exam, mucous membranes moist Neck exam: Present: normal inspection. Absent: tenderness, meningismus, lymphadenopathy Respiratory exam: Present: normal lung sounds bilaterally. Absent: respiratory distress, wheezes, rales, rhonchi, stridor Cardiovascular Exam: Present: regular rate, normal rhythm, normal heart sounds. Absent: systolic murmur, diastolic murmur, rubs, gallop, clicks GI/Abdominal exam: Present: soft, tenderness (Tenderness to palpation in suprap ubic area), normal bowel sounds. Absent: distended, guarding, rebound, rigid Extremities exam: Present: normal inspection, full ROM, normal capillary refill. Absent: tenderness, pedal edema, joint swelling, calf tenderness Back exam: Present: normal inspection. Absent: CVA tenderness (R), CVA tenderness (L) Neurological exam: Present: alert, oriented X3, CN II-XII intact Psychiatric exam: Present: normal affect, normal mood Skin exam: Present: warm, dry, intact, normal color. Absent: rash <Guera Alejandra - Last Filed: 03/31/24 19:43> - General Exam Comments Initial Comments: Visual Physical Exam Vital signs reviewed General: Well-appearing, nontoxic, no acute distress. Head: Normocephalic, atraumatic Eyes: PERRLA, EOMI ENT: Airway patent Chest: Nonlabored breathing Skin: No visual rash, normal skin tone Neuro: Alert and oriented 3 Musculoskeletal: No gross abnormalities (Karie Chacon) Course Vital Signs 03/31/24 03/31/24 03/31/24 09:50 12:40 15:36 Temperature 98 F 98.4 F 97.0 F L Pulse Rate 78 63 60 Respiratory 18 16 18 Rate Blood Pressure 165/88 155/84 160/81 O2 Sat by Pulse 98 95 97 Oximetry 03/31/24 16:34 Temperature 98.2 F Pulse Rate 62 Respiratory 18 Rate Blood Pressure 150/88 O2 Sat by Pulse 95 Oximetry Medical Decision Making <Karie Chacon - Last Filed: 03/31/24 09:57> - Lab Data Result diagrams: 03/31/24 10:37 03/31/24 10:37 <JustynGuera - Last Filed: 03/31/24 19:43> - Medical Decision Making I performed the QuickNote portion of this chart. Signed Karie Chacon PA-C. (Karie Chacon) Was pt. sent in by a medical professional or institution (LACEY Purcell, SAFETY GROOVING MACHINE OPERATOR, urgent care, hospital, or fpc...) When possible be specific @ -No Did you speak to anyone other than the patient for history (EMS, parent, family, police, friend...)? What history was obtained from this source @ -Patient's supplemented history Did you review nursing and triage notes (agree or disagree)? Why? @ -I reviewed and agree with nursing and triage notes Were old charts reviewed (outside hosp., previous admission, EMS record, old EKG, old radiological studies, urgent care reports/EKG's, fpc records)? Report findings @ -No old charts were reviewed Differential Diagnosis (chest pain, altered mental status, abdominal pain women, abdominal pain men, vaginal bleeding, weakness, fever, dyspnea, syncope, headache, dizziness, GI bleed, back pain, seizure, CVA, palpatations, mental health, musculoskeletal)? @ -Differential Abdominal Pain Men: Appendicitis, cholecystitis, diverticulosis, ischemic bowel, pancreatitis, hepatitis, UTI, gastroenteritis, AAA, incarcerated hernia, bowel obstruction, constipation, inflammatory bowel, hepatitis, peptic ulcer disease, splenic infarction, perforated viscus, testicular torsion, this is not meant to be an all-inclusive list EKG interpreted by me (3pts min.). @ -None X-rays interpreted by me (1pt min.). @ -None done CT interpreted by me (1pt min.). @ -CT revealed presumed hemorrhage at surgical bed post prostatectomy U/S interpreted by me (1pt. min.). @ -None done What testing was considered but not performed or refused? (CT, X-rays, U/S, labs )? Why? @ -None What meds were considered but not given or refused? Why? @ -None Did you discuss the management of the patient with other professionals (professionals i.e. , PA, SAFETY GROOVING MACHINE OPERATOR, lab, RT, psych nurse, high school social studies tutor, director of infection prevention, teacher, residential care officer, case management coordinator)? Give summary @ -No Was smoking cessation discussed for >3mins.? @ -No Was critical care preformed (if so, how long)? @ -No Were there social determinants of health that impacted care today? How? (Homelessness, low income, unemployed, alcoholism, drug addiction, transportation, low edu. Level, literacy, decrease access to med. care, prison, rehab)? @ -No Was there de-escalation of care discussed even if they declined (Discuss DNR or withdrawal of care, Hospice)? DNR status @ -No What co-morbidities impacted this encounter? (DM, HTN, Smoking, COPD, CAD, Cancer, CVA, ARF, Chemo, Hep., AIDS, mental health diagnosis, sleep apnea, morbid obesity)? @ -None Was patient admitted / discharged? Hospital course, mention meds given and route, prescriptions, significant lab abnormalities, going to OR and other pertinent info. @ -Patient was discharged. Patient was seen and evaluated for hematuria status post prostatectomy 2 weeks ago. Vitals are stable. CT reveals hemorrhage at surgical bed post prostatectomy. Lab work unremarkable, hemoglobin 15.8. UA ordered however sample not obtained. Discussed crain catheter placement if pt feels he is retaining urine, pt declines crain cath at this time and states he would like to follow up with his urologist. Discussed this is reasonable as his hemoglobin is stable and he is able to urinate. Patient given urology referral and instructed to follow-up tomorrow. Strict return/alarm symptoms discussed with patient in detail and he shows understanding and agrees with plan. Case discussed in detail with my attending Dr. Bowden. Patient discharged in stable condition. Undiagnosed new problem with uncertain prognosis? @ -No Drug Therapy requiring intensive monitoring for toxicity (Heparin, Nitro, Insulin, Cardizem)? @ -No Were any procedures done? @ -No Diagnosis/symptom? @ -Prostate hemorrhage Acute, or Chronic, or Acute on Chronic? @ -Acute Uncomplicated (without systemic symptoms) or Complicated (systemic symptoms)? @ -Uncomplicated Side effects of treatment? @ -No Exacerbation, Progression, or Severe Exacerbation? @ -No Poses a threat to life or bodily function? How? (Chest pain, USA, NM, pneumonia, PE, COPD, DKA, ARF, appy, cholecystitis, CVA, Diverticulitis, Homicidal, Suicidal, threat to staff... and all critical care pts) @ -Low likelihood (Guera Alejandra) - Lab Data Lab Results 03/31/24 03/31/24 03/31/24 Range/Units 10:37 10:37 10:37 WBC 8.0 (3.8-10.6) k/uL RBC 5.53 (4.30-5.90) m/uL Hgb 15.8 (13.0-17.5) gm/dL Hct 48.2 (39.0-53.0) % MCV 87.2 (80.0-100.0) fL MCH 28.7 (25.0-35.0) pg MCHC 32.9 (31.0-37.0) g/dL RDW 12.8 (11.5-15.5) % Plt Count 229 (150-450) k/uL MPV 7.6 Neutrophils % 59 % Lymphocytes % 30 % Monocytes % 4 % Eosinophils % 4 % Basophils % 1 % Neutrophils # 4.7 (1.3-7.7) k/uL Lymphocytes # 2.4 (1.0-4.8) k/uL Monocytes # 0.3 (0-1.0) k/uL Eosinophils # 0.4 (0-0.7) k/uL Basophils # 0.1 (0-0.2) k/uL PT 11.4 (10.0-12.5) sec INR 1.1 (<1.2) APTT 25.4 (22.0-30.0) sec Sodium 139 (137-145) mmol/L Potassium 4.3 (3.5-5.1) mmol/L Chloride 109 H (98-107) mmol/L Carbon Dioxide 22 (22-30) mmol/L Anion Gap 8 mmol/L BUN 20 (9-20) mg/dL Creatinine 0.93 (0.66-1.25) mg/dL Est GFR (CKD-EPI)AfAm >90 (>60 ml/min/1.73 sqM) Est GFR (CKD-EPI)NonAf 86 (>60 ml/min/1.73 sqM) Glucose 143 H (74-99) mg/dL Plasma Lactic Acid Joshua (0.7-2.0) mmol/L Calcium 9.4 (8.4-10.2) mg/dL Total Bilirubin 1.2 (0.2-1.3) mg/dL AST 24 (17-59) U/L ALT 19 (4-49) U/L Alkaline Phosphatase 77 (38-126) U/L Total Protein 7.1 (6.3-8.2) g/dL Albumin 4.2 (3.5-5.0) g/dL 03/31/24 Range/Units 10:37 WBC (3.8-10.6) k/uL RBC (4.30-5.90) m/uL Hgb (13.0-17.5) gm/dL Hct (39.0-53.0) % MCV (80.0-100.0) fL MCH (25.0-35.0) pg MCHC (31.0-37.0) g/dL RDW (11.5-15.5) % Plt Count (150-450) k/uL MPV Neutrophils % % Lymphocytes % % Monocytes % % Eosinophils % % Basophils % % Neutrophils # (1.3-7.7) k/uL Lymphocytes # (1.0-4.8) k/uL Monocytes # (0-1.0) k/uL Eosinophils # (0-0.7) k/uL Basophils # (0-0.2) k/uL PT (10.0-12.5) sec INR (<1.2) APTT (22.0-30.0) sec Sodium (137-145) mmol/L Potassium (3.5-5.1) mmol/L Chloride (98-107) mmol/L Carbon Dioxide (22-30) mmol/L Anion Gap mmol/L BUN (9-20) mg/dL Creatinine (0.66-1.25) mg/dL Est GFR (CKD-EPI)AfAm (>60 ml/min/1.73 sqM) Est GFR (CKD-EPI)NonAf (>60 ml/min/1.73 sqM) Glucose (74-99) mg/dL Plasma Lactic Acid Joshua 1.5 (0.7-2.0) mmol/L Calcium (8.4-10.2) mg/dL Total Bilirubin (0.2-1.3) mg/dL AST (17-59) U/L ALT (4-49) U/L Alkaline Phosphatase (38-126) U/L Total Protein (6.3-8.2) g/dL Albumin (3.5-5.0) g/dL Disposition <Karie Chacon - Last Filed: 03/31/24 09:57> Is patient prescribed a controlled substance at d/c from ED?: No Time of Disposition: 15:44 <Guera Alejandra - Last Filed: 03/31/24 19:43> Clinical Impression: Prostatic hemorrhage Disposition: HOME SELF-CARE Condition: Stable Additional Instructions: Please follow-up with urology tomorrow. Please return to the Emergency Department if symptoms worsen or any other concerns. Referrals: Stalin Barrera MD [STAFF PHYSICIAN] - 1-2 days Williams Blair MD [Primary Care Provider] - 1-2 days Valerie Jo MD [Family Provider] - 1-2 days
[2024-03-31 10:59] LABS: Basophils # (A) 0.1 k/uL (0-0.2); Basophils % (A) 1 %; Eosinophils # (A) 0.4 k/uL (0-0.7); Eosinophils % (A) 4 %; HCT 48.2 % (39.0-53.0); HGB 15.8 gm/dL (13.0-17.5); Lymphocytes # (A) 2.4 k/uL (1.0-4.8); Lymphocytes % (A) 30 %; MCH 28.7 pg (25.0-35.0); MCHC 32.9 g/dL (31.0-37.0); MCV 87.2 fL (80.0-100.0); Mean Platelet Volume 7.6; Monocytes # (A) 0.3 k/uL (0-1.0); Monocytes % (A) 4 %; Neutrophils # (A) 4.7 k/uL (1.3-7.7); Neutrophils % (A) 59 %; Platelet Count 229 k/uL (150-450); RBC 5.53 m/uL (4.30-5.90); RDW 12.8 % (11.5-15.5)
[2024-03-31 11:10] LABS: INR 1.1 (<1.2); Partial Thromboplastin Time 25.4 sec (22.0-30.0); Prothrombin Time 11.4 sec (10.0-12.5)
[2024-03-31 11:17] LABS: ALT 19 U/L (4-49); AST 24 U/L (17-59); African American GFR (CKD) >90 (>60 ml/min/1.73 sqM); Albumin 4.2 g/dL (3.5-5.0); Alkaline Phosphatase 77 U/L (38-126); Anion Gap 8 mmol/L; Blood Urea Nitrogen 20 mg/dL (9-20); Calcium 9.4 mg/dL (8.4-10.2); Carbon Dioxide 22 mmol/L (22-30); Chloride 109 mmol/L (98-107); Glucose 143 mg/dL (74-99); Non-African American GFR(CKD) 86 (>60 ml/min/1.73 sqM); Potassium 4.3 mmol/L (3.5-5.1); Sodium 139 mmol/L (137-145); Total Bilirubin 1.2 mg/dL (0.2-1.3); Total Protein 7.1 g/dL (6.3-8.2)
[2024-03-31] MEDS: methylPREDNISolone SOD SUCCI 125 MG/2 ML VIAL IV STA (12:45)
[2024-03-31] MEDS: FAMOTIDINE 20 MG/2 ML VIAL IV STA (12:48)
[2024-03-31] MEDS: diphenhydrAMINE 50 MG/ML 1 ML VIAL IVP STA (12:50)
--- NOTE | 2024-03-31 14:32 | CT ---
EXAMINATION TYPE: CT abdomen pelvis w con CT DLP: 1529.2 mGycm, Automated exposure control for dose reduction was used. DATE OF EXAM: 03/31/2024 1:46 PM COMPARISON: None. CLINICAL INDICATION:Male, 68 years old with history of Abdominal injury with hematuria; h/o prostate removal x3 weeks ago, blunt force to genital area and bleeding TECHNIQUE: Axial CT abdomen pelvis w con;Sagittal and coronal reformats were created on a separate w orkstation. Contrast used:100 mL of Isovue 300 with IV Contrast, (none if empty) Oral contrast used: without Oral Contrast (none if empty) FINDINGS: LOWER CHEST: Unremarkable ABDOMEN LIVER: Unremarkable GALLBLADDER AND BILE DUCTS: Unremarkable. PANCREAS: Unremarkable. SPLEEN: Unremarkable. ADRENAL GLANDS: Unremarkable. KIDNEYS AND URETERS: No evidence of hydronephrosis or renal calculus. The ureters are unremarkable. PELVIS BLADDER: Unremarkable REPRODUCTIVE: Absent prostate by history. However appears shortness of 5.5 cm heterogeneous isodense compared to muscle collection at the site of the prostate. In addition prostatectomy, likely hemorrha ge at the operative site. ABDOMEN & PELVIS STOMACH AND BOWEL: Stomach and duodenum are unremarkable. No evidence of bowel obstruction. PERITONEUM/RETROPERITONEUM: No evidence of pneumoperitoneum or free fluid. VASCULATURE: No evidence of aortic aneurysm. MUSCULOSKELETAL: No acute osseous abnormalities LYMPH NODES: No gross evidence for lymphadenopathy. SOFT TISSUE/ABDOMINAL WALL: Unremarkable IMPRESSION: 1. Presumed hemorrhage at the surgical bed post prostatectomy
[2024-03-31 15:37] VITALS: RESP 18
[2024-03-31 16:35] VITALS: BP 150/88; PULSE 62; TEMP 98.2
== END 2024-03-31 16:35 | disposition home or self-care (01) ==
LOC: EC 09:24
DX: N42.1 Congestion and hemorrhage of prostate (principal); Z88.8 Allergy status to other drugs, medicaments and biological substances
CPT/HCPCS: 36415; 80053; 83605; 85025; 85610; 85730; 74177; 99284; 96374; 96375 ×2; J1200; J3490; Q9967; J2919